=== PATIENT | female | born 1955 | race Caucasian/White ===

== ENCOUNTER → 2019-10-10 | Outpatient (CLI) | payer MEDICAID, SELFPAY | PROVIDERS: Family Provider Nurse Practitioner; Visit Provider Nurse Practitioner | DX: Z12.31 Encounter for screening mammogram for malignant neoplasm of breast (principal) | CPT/HCPCS: 77067 ==

== ENCOUNTER → 2019-10-25 11:41 | Outpatient (BNVA) | payer MEDICAID, SELFPAY | PROVIDERS: Family Provider Nurse Practitioner; PCP Nurse Practitioner; Visit Provider Social Worker Clinical | DX: F33.2 Major depressive disorder, recurrent severe without psychotic features (principal) | CPT/HCPCS: 90834 ==

== ENCOUNTER → 2019-10-30 10:01 | Outpatient (BNVA) | payer MEDICAID, SELFPAY | PROVIDERS: Family Provider Nurse Practitioner; PCP Nurse Practitioner; Visit Provider Nurse Practitioner Psychiatric/Mental Health | DX: F31.32 Bipolar disorder, current episode depressed, moderate (principal); G89.29 Other chronic pain | CPT/HCPCS: 99213 ==

== ENCOUNTER → 2019-12-04 14:30 | Outpatient (BNVA) | payer MEDICAID, SELFPAY | PROVIDERS: Family Provider Nurse Practitioner; PCP Nurse Practitioner; Visit Provider Nurse Practitioner | DX: E03.8 Other specified hypothyroidism (principal); M81.0 Age-related osteoporosis without current pathological fracture; J44.9 Chronic obstructive pulmonary disease, unspecified | CPT/HCPCS: 80053; 84439; 84443; 84481; 85025 ==

== ENCOUNTER → 2019-12-05 11:58 | Outpatient (BNVA) | payer MEDICAID, SELFPAY | PROVIDERS: Family Provider Nurse Practitioner; PCP Nurse Practitioner; Visit Provider Nurse Practitioner | DX: E03.8 Other specified hypothyroidism (principal) | CPT/HCPCS: 81003 ==

== ENCOUNTER → 2019-12-11 09:49 | Outpatient (BNVA) | payer MEDICAID, SELFPAY | PROVIDERS: Family Provider Nurse Practitioner; PCP Nurse Practitioner; Visit Provider Nurse Practitioner Psychiatric/Mental Health | DX: F33.9 Major depressive disorder, recurrent, unspecified (principal); E03.8 Other specified hypothyroidism; G47.33 Obstructive sleep apnea (adult) (pediatric) | CPT/HCPCS: 99213 ==

== ENCOUNTER 2019-12-12 11:00 | Outpatient (CLI) | payer MEDICAID, SELFPAY ==
--- NOTE | 2019-12-12 15:45 | XR_ITS ---
WS: [id number] DEXA (DUAL ENERGY X-RAY ABSORPTIOMETRY) Bone mineral density was performed using a [employer] machine. HISTORY: post menopausal COMPARISON: 12/21/2017 Lumbar spine BMD (L1-L4): 0.972 g/cm2 T score: -1.7 Z score: -0.9 Total hip BMD: Left: 0.903 g/cm2. T score: -0.8 Z score: -0.2 Right: 0.917 g/cm2. T score: -0.7 Z score: 0.0 10 year probability of a major osteoporotic fracture is 8%. Compared to the prior study from 12/21/2017. Lumbar spine bone mineral density has decreased by 4.7%. Bilateral hips bone mineral density has decreased by 0.9%. XR/XR DEXA axial skeleton* [id number] IMPRESSION: OSTEOPENIA based upon the WHO classification for females. Significant decrease in bone mineral density within the lumbar spine since the prior study. No significant change involving the hips.
== END 2019-12-12 11:01 | disposition home or self-care (01) ==
PROVIDERS: Family Provider Nurse Practitioner; PCP Nurse Practitioner; Visit Provider Nurse Practitioner
DX: M81.0 Age-related osteoporosis without current pathological fracture (principal)
CPT/HCPCS: 77080

== ENCOUNTER 2019-12-25 08:04 | Outpatient (CLI) | payer MEDICAID, SELFPAY ==
--- NOTE | 2019-12-25 08:45 | US_ITS ---
WS: [id number] THYROID ULTRASOUND REASON FOR EXAM: enlarged thyroid TECHNIQUE: Grayscale and Doppler ultrasound examination of the thyroid gland. FINDINGS: RIGHT: Right thyroid gland measures 4.4 cm x 1.0 cm x 1.2 cm. Right thyroid volume equals 2.8 ccm3. A adenoma measures 0.33 x 0.23 x 0.32 cm in the upper right lobe. LEFT: Left thyroid gland appears to be surgically absent. Thyroid isthmus: 0.2 mm. US/US thyroid [id number] IMPRESSION: Benign adenoma right lobe of the thyroid. Surgical absence of the left lobe. The right lobe is within normal limits.
== END 2019-12-25 08:05 | disposition home or self-care (01) ==
PROVIDERS: Family Provider Nurse Practitioner; PCP Nurse Practitioner; Visit Provider Nurse Practitioner
DX: F33.9 Major depressive disorder, recurrent, unspecified; E04.9 Nontoxic goiter, unspecified; D34 Benign neoplasm of thyroid gland; E89.0 Postprocedural hypothyroidism
CPT/HCPCS: 90834; 76536

== ENCOUNTER → 2020-01-22 13:53 | Outpatient (BNVA) | payer MEDICAID, SELFPAY | PROVIDERS: Family Provider Nurse Practitioner; PCP Nurse Practitioner; Visit Provider Social Worker Clinical | DX: F33.9 Major depressive disorder, recurrent, unspecified (principal) | CPT/HCPCS: 90834 ==

== ENCOUNTER → 2020-01-29 10:42 | Outpatient (BNVA) | payer MEDICAID, SELFPAY | PROVIDERS: Family Provider Nurse Practitioner; PCP Nurse Practitioner; Visit Provider Specialist | DX: R41.9 Unspecified symptoms and signs involving cognitive functions and awareness (principal) | CPT/HCPCS: 96116; 99213 ==

== ENCOUNTER → 2020-02-05 08:16 | Outpatient (BNVA) | payer MEDICAID, SELFPAY | PROVIDERS: Family Provider Nurse Practitioner; PCP Nurse Practitioner; Visit Provider Social Worker Clinical | DX: F33.9 Major depressive disorder, recurrent, unspecified (principal) | CPT/HCPCS: 90832 ==

== ENCOUNTER → 2020-02-06 13:57 | Outpatient (BNVA) | payer MEDICAID, SELFPAY | PROVIDERS: Family Provider Nurse Practitioner; PCP Nurse Practitioner; Visit Provider Nurse Practitioner | DX: M25.569 Pain in unspecified knee (principal) | CPT/HCPCS: 73562 ==

== ENCOUNTER → 2020-02-12 07:48 | Outpatient (BNVA) | payer MEDICAID, SELFPAY | PROVIDERS: Family Provider Nurse Practitioner; PCP Nurse Practitioner; Visit Provider Nurse Practitioner Psychiatric/Mental Health | DX: F33.9 Major depressive disorder, recurrent, unspecified (principal); F33.2 Major depressive disorder, recurrent severe without psychotic features | CPT/HCPCS: 99212 ==

== ENCOUNTER → 2020-02-19 08:17 | Outpatient (BNVA) | payer MEDICAID, SELFPAY | PROVIDERS: Family Provider Nurse Practitioner; PCP Nurse Practitioner; Visit Provider Social Worker Clinical | DX: F33.9 Major depressive disorder, recurrent, unspecified (principal) | CPT/HCPCS: 90834 ==

== ENCOUNTER → 2020-03-07 08:28 | Outpatient (BNVA) | payer MEDICAID, SELFPAY | PROVIDERS: Family Provider Nurse Practitioner; PCP Nurse Practitioner; Visit Provider Social Worker Clinical | DX: F33.9 Major depressive disorder, recurrent, unspecified (principal) | CPT/HCPCS: 90832 ==

== ENCOUNTER 2020-03-29 13:45 | Emergency (ER) | payer MEDICAID, SELFPAY ==
[2020-03-29 14:06] VITALS: BP 107/58; PULSE 65; RESP 14; TEMP 36.3; O2SAT 94; BMI 33.3
--- NOTE | 2020-03-29 14:43 | W.ED.SKABFB ---
HPI - Skin/Abscess/Foreign Bdy General: Chief complaint: Skin/Abscess/Foreign Body Stated complaint: knot behind ear Time Seen by Provider: 03/29/20 14:40 Source: patient Mode of arrival: ambulatory Limitations: no limitations History of Present Illness: HPI narrative: Patient comes in with swelling and tenderness behind the left ear. Patient reports starting this morning. Patient has chronic problems with the left tympanic membrane. Patient also reports chronic problems with earwax buildup in the canal. Patient appears well. Patient appears in mild discomfort. Review of Systems General: Reports: 10 or more systems reviewed and unremarkable except in HPI and below ENMT: Reports: ear or mastoid pain PFSH ED PFSH: Medical History (Updated 03/29/20 @ 14:51 by GANESH Conte) Adult onset hypothyroidism Herpes simplex History of cancer tonsil Insomnia, persistent Lumbosacral spondylosis with radiculopathy Major depressive disorder, recurrent episode She has chronic co-morbidities, including but not limited to pain and sleep apnea, which contribute to fatigue and mood dysphoria. No thoughts of harming herself or others. See subjective information below. Metabolic syndrome Mixed hyperlipidemia Obstructive sleep apnea Obstructive sleep apnea She wears her CPAP machine usually 2 or 3 nights a week, and does not wear it on the remaining nights. She is aware of the risks of not wearing the CPAP supplement. Her energy level is low, a chronic symptom. Osteoporosis, post-menopausal Seasonal allergic rhinitis due to pollen Spondylolisthesis, cervical region FLIP (stress urinary incontinence, female) Vitamin D deficiency Surgical History History of colonoscopy with polypectomy Family History Father Hypertension Mother Hypertension Cancer Sister Hypertension Diabetes Social History Smoking and tobacco status: never smoked Quit status (tobacco): has quit using tobacco Year quit tobacco: 2013 Second hand smoke exposure: No Smoking risk assessment/counseling performed?: No Alcohol intake: never Desire information about alcohol rehabilitation?: No Counseling given: No Desire information about substance/drug rehabilitation?: No Counseling given: No Lives independently: Yes Household members: spouse Housing: House Marital status: Number of children: 2 Current occupational status: unemployed History of recent travel: No Current gender identity: Female Female Reproductive History: Para: 2 Physical Exam Const: COMMON NORMALS: no acute distress and patient oriented x3 GENERAL APPEARANCE: cooperative HENMT: COMMON NORMALS: normocephalic and Normal external nose present HEAD & SCALP: normal to inspection and normocephalic NOSE: Normal external nose present TYMPANIC MEMBRANE: other (Perforation of the TM is noted to the left ear. Cerumen is noted in the left ear canal. Tenderness is noted to the left mastoid. No obvious redness or swelling is noted to the area of tenderness.) MOUTH: Normal oral and palatal mucosa present THROAT: posterior oropharynx normal Eye: GENERAL EYE: appearance normal, both eyes and all related structures Neck/C-Spine: COMMON NORMALS: full ROM Lymph: LYMPHATIC: no lymphadenopathy noted Chest: COMMONS NORMALS: normal inspection of the chest Resp: COMMON NORMALS: normal respiratory effort EFFORT & INSPECTION: Yes able to speak in complete sentences Cardio: COMMON NORMALS: regular rate and regular rhythm RATE: regular rate RHYTHM: regular rhythm GI: COMMON NORMALS: non-tender : COMMON NORMALS: Yes no CVA tenderness BLADDER/KIDNEY EXAM: Yes no CVA tenderness Back/Pelvis: COMMON NORMALS: no CVA tenderness and thoracic and lumbar spine normal to inspection Extremity: COMMON NORMALS: normal to inspection Neuro: COMMON NORMALS: patient oriented x3 and moves all extremities Psych: COMMON NORMALS: mental status grossly normal and cooperative Skin: COMMON NORMALS: no rashes or lesions noted GENERAL SKIN EXAM: no rashes or lesions noted Course Vital Signs: Vital signs: Vital Signs Temperature 97.3 F L 03/29/20 14:06 Pulse Rate 61 03/29/20 14:44 Respiratory Rate 16 03/29/20 14:44 Blood Pressure 113/72 03/29/20 14:44 Pulse Oximetry 95 03/29/20 14:44 MDM - Skin/Abscess/Foreign Bdy MDM Narrative: Medical decision making narrative: Patient comes in for concern of swelling and tenderness behind the left ear. Patient appears well. Patient appears in no acute distress. Physical exam notes tenderness to the left mastoid with a perforation to the left tympanic membrane. No obvious redness is noted to the ear canal but there is significant wax and whitish exudate. Differential diagnosis includes cerumen impaction, otitis externa, chronic otitis media. Reviewed exam with patient recommended treatment with antibiotic and follow-up with ear nose and throat. Patient reported understanding and agreed to plan. Discharge Plan Discharge Patient Disposition: Home, Self-Care Clinical Impression: Acute otitis media, left Condition: Stable Prescriptions: New Augmentin 875-125 mg tablet 1 tab PO BID Qty: 14 RF: 0 No Action baclofen 10 mg tablet 10 mg PO TID RF: 0 tacrolimus 0.1 % ointment 1 applic TOPICAL BID PRNRF: 0 budesonide [Pulmicort] 0.5 mg/2 mL suspension for nebulization 0.5 mg INHALATION BID PRNRF: 0 hydroxyzine HCl 25 mg tablet 25 mg PO BID RF: 0 donepezil [Aricept] 5 mg tablet 5 mg PO QAM RF: 0 trazodone 50 mg tablet 50 mg PO .QHS PRNRF: 0 cetirizine [Zyrtec] 10 mg tablet 10 mg PO DAILY Qty: 30 RF: 5 cholecalciferol (vitamin D3) 1,250 mcg (50,000 unit) capsule 50,000 unit PO .COMPLEX Qty: 2 RF: 5 estradiol 0.01 % (0.1 mg/gram) cream 1 gm VAGINAL .2 times a week Qty: 42.5 RF: 2 guaifenesin [Mucinex] 600 mg tablet extended release 12hr 600 mg PO BID PRN (Reason: congestion) Qty: 60 RF: 5 levothyroxine 200 mcg tablet 200 mcg PO DAILY Qty: 30 RF: 5 rosuvastatin [Crestor] 40 mg tablet 40 mg PO .QHS Qty: 30 RF: 5 aripiprazole [Abilify] 5 mg tablet 5 mg PO DAILY Qty: 30 RF: 2 fluoxetine [Prozac] 40 mg capsule 40 mg PO DAILY Qty: 30 RF: 2 prenat.vits,bull,lrb-lcuz-okjzv Tablet 1 tab PO DAILY 30 Days Qty: 30 RF: 5 ibandronate [Boniva] 150 mg tablet 150 mg PO .monthly Qty: 1 RF: 5 albuterol sulfate 2.5 mg /3 mL (0.083 %) solution for nebulization 2.5 mg INHALATION Q6H Qty: 75 RF: 5 meloxicam [Mobic] 15 mg tablet 15 mg PO DAILY PRN (Reason: joint pain) Qty: 30 RF: 2 famciclovir 500 mg tablet 500 mg PO BID Qty: 60 RF: 2 albuterol sulfate [Ventolin HFA] 90 mcg/actuation HFA aerosol inhaler 2 puff INHALATION QID PRN (Reason: shortness of breath or wheezing) Qty: 8.5 RF: 2 Discharge Orders: Discharge Order (Routine); Ordered 03/29/20 Ordered By: Chad Trinidad Referrals: Sharlene Thomason, LOGISTICIAN-C [Primary Care Provider] - Discharge Diet: Usual diet Discharge Activity: Increase activity as tolerated Activity Restrictions/Additional Instructions: Drink plenty of water with medication. Activity as tolerated. Follow-up with research animal facility supervisor for continued complaint. Return to the ER for high fever or worsening symptoms. Coding Level of Care Code ED Child Psychology Teacher for Jacquelin Fwanna Exam Comprehensive
[2020-03-29 14:44] VITALS: BP 113/72; PULSE 61; RESP 16; O2SAT 95
[2020-03-29 15:01] VITALS: BP 108/75; PULSE 64; RESP 17; O2SAT 95
== END 2020-03-29 15:02 | disposition home or self-care (01) ==
LOC: ER 15:16
PROVIDERS: Emergency Provider Nurse Practitioner Family; PCP Nurse Practitioner
DX: H66.92 Otitis media, unspecified, left ear (principal); Z87.891 Personal history of nicotine dependence; E78.2 Mixed hyperlipidemia
CPT/HCPCS: 12345; 99282; 99283

== ENCOUNTER → 2020-04-01 12:12 | Outpatient (BNVA) | payer MEDICAID, SELFPAY | PROVIDERS: PCP Nurse Practitioner; Visit Provider Nurse Practitioner | DX: R59.9 Enlarged lymph nodes, unspecified (principal); Z85.818 Personal history of malignant neoplasm of other sites of lip, oral cavity, and pharynx | CPT/HCPCS: 80053; 85025 ==

== ENCOUNTER → 2020-04-08 07:55 | Outpatient (BNVA) | payer MEDICAID, SELFPAY | PROVIDERS: PCP Nurse Practitioner; Visit Provider Social Worker Clinical | DX: F33.9 Major depressive disorder, recurrent, unspecified (principal) | CPT/HCPCS: 90832 ==

== ENCOUNTER 2020-04-11 08:01 | Outpatient (CLI) | payer MEDICAID, SELFPAY ==
--- NOTE | 2020-04-11 08:00 | CT_ITS ---
WS: [id number] CT NECK WITH CONTRAST HISTORY: History tonsil CA and left lymph node TECHNIQUE: Contiguous 5 mm axial images are performed through the neck with intravenous contrast. Sag ittal and coronal reformats are also submitted. All CT scans at [facility] use at least o ne of these dose optimization techniques: automated exposure control; mA and/or kV adjustment per pat ient size (includes targeted exams where dose is matched to clinical indication); or iterative recons truction. CONTRAST: CONTRAST: Omnipaque 300; 95 mL IV. DLP: 2475.58 mGycm COMPARISON: 08/17/2019 and 05/24/2018 Nasopharynx, oropharynx, hypopharynx and larynx are unremarkable. No soft tissue masses or abnormal e nhancement. Torus tubarius and fossa of Rosenmuller and parapharyngeal fat are normal. There is a slightly enlarging lymph node at level 1b on the RIGHT. Maximum diameter of 8 mm. Very sli ghtly increased in size since 08/17/2019. Otherwise no adenopathy identified. In the region of the pal pable marker along the LEFT neck there is no mass. Sternocleidomastoid muscle and normal soft tissues at this level. LEFT thyroid has been removed. LEFT submandibular gland may have been surgically removed or small bull iber versus atrophy. Mild cervical spondylosis. Visualized portions of the skull base demonstrate no abnormalities. Orbits and globes are within norm al limits. No soft tissue masses. Visualized paranasal sinuses and mastoid air cells are normal. Chronic emphysematous changes at the apices. Mild atherosclerosis thoracic aorta. Mild intimal thickening LEFT carotid artery. CT/CT neck w con* [id number] IMPRESSION: 1. No soft tissue mass or adenopathy along the LEFT neck in the area of the pa lpable region. Normal soft tissues. 2. Slightly enlarged but still subcentimeter RIGHT level Ib lymph node. May be reactive versus early neoplastic. 3. Prior LEFT thyroidectomy and atrophy versus removal of the LEFT submandibul ar gland. 4. No recurrent mass.
[2020-04-11] MEDS: iohexol 300 mg/mL 100 mL Btl IV (08:18)
== END 2020-04-11 08:02 | disposition home or self-care (01) ==
LOC: RADWPI 08:02
PROVIDERS: PCP Nurse Practitioner; Visit Provider Nurse Practitioner
DX: R59.9 Enlarged lymph nodes, unspecified (principal); Z85.818 Personal history of malignant neoplasm of other sites of lip, oral cavity, and pharynx; R73.9 Hyperglycemia, unspecified
CPT/HCPCS: 70491; 83036; Q9967

== ENCOUNTER → 2020-05-08 08:02 | Outpatient (BNVA) | payer MEDICAID, SELFPAY | PROVIDERS: PCP Nurse Practitioner; Visit Provider Social Worker Clinical | DX: F33.9 Major depressive disorder, recurrent, unspecified (principal) | CPT/HCPCS: 90834 ==

== ENCOUNTER 2020-05-09 14:55 | Outpatient (CLI) | payer MEDICAID, SELFPAY ==
--- NOTE | 2020-05-09 15:15 | MR_ITS ---
WS: [id number] MRI HEAD WITHOUT CONTRAST TECHNIQUE: Sagittal T1, T2 axial, T2 axial FLAIR, axial and coronal T1 images, axial susceptibility w eighted imaging, axial diffusion weighted images, and coronal T2 images were obtained. CLINICAL INFORMATION: Z85.818 Personal history of malignant neoplasm of other s... COMPARISON: MRI 5 15,015 FINDINGS: No evidence of restricted diffusion to suggest acute ischemia. Ventricular system and basal cisterns are patent. Mild supratentorial white matter changes consistent with small vessel disease in a patien t this age. This is slightly progressed since 2014. No significant parenchymal volume loss. Normal posterior fossa. Normal vascular flow voids at the skull base. No extra-axial fluid collection s. No evidence of mass or mass effect. Paranasal sinuses are well aerated. Mild mucosal thickening in the mastoid air cells bilaterally. No hemosiderin on the susceptibility weighted images. Normal opti c chiasm and pituitary infundibulum. Temporal lobes and hippocampal formations are normal in appearan ce. No atrophy. Cavernous sinuses and Meckel's cave are normal in appearance. MR/MR head wo con* [id number] IMPRESSION: 1. No evidence of restricted diffusion to suggest acute ischemia. 2. Mild small vessel changes slightly progressed since 2014 3. No significant parenchymal volume loss. 4. Temporal lobes and hippocampal formations are normal in appearance. No atro phy. 5. Mild mucosal thickening in the mastoid air cells bilaterally. Paranasal sin uses are well aerated 6. No other significant findings.
== END 2020-05-09 14:56 | disposition home or self-care (01) ==
LOC: RADSHAW 14:59
PROVIDERS: PCP Nurse Practitioner; Visit Provider Nurse Practitioner
DX: Z85.818 Personal history of malignant neoplasm of other sites of lip, oral cavity, and pharynx (principal); R51 Headache
CPT/HCPCS: 70551

== ENCOUNTER → 2020-05-16 09:28 | Outpatient (BNVA) | payer MEDICAID, SELFPAY | PROVIDERS: PCP Nurse Practitioner; Visit Provider Nurse Practitioner Psychiatric/Mental Health | DX: F33.9 Major depressive disorder, recurrent, unspecified (principal); G47.33 Obstructive sleep apnea (adult) (pediatric) | CPT/HCPCS: 99212 ==

== ENCOUNTER → 2020-06-04 09:31 | Outpatient (BNVA) | payer MEDICAID, SELFPAY | PROVIDERS: PCP Nurse Practitioner; Visit Provider Nurse Practitioner | DX: N39.46 Mixed incontinence (principal); E78.2 Mixed hyperlipidemia; E03.8 Other specified hypothyroidism; E55.9 Vitamin D deficiency, unspecified | CPT/HCPCS: 80053; 80061; 81000; 84443 ==

== ENCOUNTER → 2020-06-05 10:26 | Outpatient (BNVA) | payer MEDICAID, SELFPAY | PROVIDERS: PCP Nurse Practitioner; Visit Provider Social Worker Clinical | DX: F33.9 Major depressive disorder, recurrent, unspecified (principal) | CPT/HCPCS: 90832 ==

== ENCOUNTER → 2020-07-08 09:30 | Outpatient (BNVA) | payer MEDICAID, SELFPAY | PROVIDERS: PCP Nurse Practitioner; Visit Provider Social Worker Clinical | DX: F33.9 Major depressive disorder, recurrent, unspecified (principal) | CPT/HCPCS: 90834 ==

== ENCOUNTER → 2020-08-05 08:40 | Outpatient (BNVA) | payer MEDICAID, SELFPAY | PROVIDERS: PCP Nurse Practitioner; Visit Provider Social Worker Clinical | DX: F33.1 Major depressive disorder, recurrent, moderate (principal) | CPT/HCPCS: 90791 ==

== ENCOUNTER → 2020-08-08 09:33 | Outpatient (BNVA) | payer MEDICAID, SELFPAY | PROVIDERS: PCP Nurse Practitioner; Visit Provider Nurse Practitioner Psychiatric/Mental Health | DX: F33.9 Major depressive disorder, recurrent, unspecified (principal); E78.00 Pure hypercholesterolemia, unspecified | CPT/HCPCS: 99212 ==

== ENCOUNTER → 2020-08-26 08:19 | Outpatient (BNVA) | payer MEDICAID, SELFPAY | PROVIDERS: PCP Nurse Practitioner; Visit Provider Social Worker Clinical | DX: F33.0 Major depressive disorder, recurrent, mild (principal) | CPT/HCPCS: 90832 ==

== ENCOUNTER → 2020-09-02 10:19 | Outpatient (BNVA) | payer MEDICAID, SELFPAY | PROVIDERS: PCP Nurse Practitioner; Visit Provider Nurse Practitioner Family | DX: Z20.828 Contact with and (suspected) exposure to other viral communicable diseases (principal); R50.9 Fever, unspecified; R19.7 Diarrhea, unspecified | CPT/HCPCS: 85025; 87635 ==

== ENCOUNTER → 2020-09-24 08:28 | Outpatient (BNVA) | payer MEDICAID, SELFPAY | PROVIDERS: PCP Nurse Practitioner; Visit Provider Social Worker Clinical | DX: F33.9 Major depressive disorder, recurrent, unspecified (principal) | CPT/HCPCS: 90832 ==

== ENCOUNTER → 2020-09-26 08:55 | Outpatient (BNVA) | payer MEDICAID, SELFPAY | PROVIDERS: PCP Nurse Practitioner; Visit Provider Nurse Practitioner Psychiatric/Mental Health | DX: F33.9 Major depressive disorder, recurrent, unspecified (principal) | CPT/HCPCS: 99212 ==

== ENCOUNTER → 2020-10-24 08:30 | Outpatient (BNVA) | payer MEDICAID, SELFPAY | PROVIDERS: PCP Nurse Practitioner; Visit Provider Social Worker Clinical | DX: F33.9 Major depressive disorder, recurrent, unspecified (principal) | CPT/HCPCS: 90832 ==

== ENCOUNTER → 2020-11-07 08:31 | Outpatient (BNVA) | payer MEDICAID, SELFPAY | PROVIDERS: PCP Nurse Practitioner; Visit Provider Social Worker Clinical | DX: F33.9 Major depressive disorder, recurrent, unspecified (principal) | CPT/HCPCS: 90832 ==

== ENCOUNTER → 2020-11-26 07:28 | Outpatient (BNVA) | payer MEDICAID, SELFPAY | PROVIDERS: PCP Nurse Practitioner; Visit Provider Social Worker Clinical | DX: F33.9 Major depressive disorder, recurrent, unspecified (principal) | CPT/HCPCS: 90834; 90832 ==

== ENCOUNTER → 2020-12-19 08:22 | Outpatient (BNVA) | payer MEDICAID, SELFPAY | PROVIDERS: PCP Nurse Practitioner; Visit Provider Nurse Practitioner Psychiatric/Mental Health | DX: F32.4 Major depressive disorder, single episode, in partial remission (principal) | CPT/HCPCS: 99213 ==

== ENCOUNTER → 2020-12-24 09:19 | Outpatient (BNVA) | payer MEDICAID, SELFPAY | PROVIDERS: PCP Nurse Practitioner; Visit Provider Nurse Practitioner | DX: Z12.39 Encounter for other screening for malignant neoplasm of breast (principal); E55.9 Vitamin D deficiency, unspecified; E03.8 Other specified hypothyroidism; E78.2 Mixed hyperlipidemia; E78.00 Pure hypercholesterolemia, unspecified | CPT/HCPCS: 80053; 80061; 82306; 84443 ==

== ENCOUNTER 2020-12-26 08:32 | Outpatient (CLI) | payer MEDICAID, SELFPAY ==
--- NOTE | 2020-12-26 08:48 | CT_ITS ---
WS: [id number] CT scan of the neck. Additional two-dimensional coronal and sagittal reconstruction was performed. Clinical Data: MALIGNANT NEOPLASM OF TONSIL, PAIN IN THROAT Comparison: CT neck, 04/11/2020 DLP: 2582.[address] scans at [facility] use at least one of these dose optimization techniques: automat ed exposure control; mA and/or kV adjustment per patient size (includes targeted exams where dose is matched to clinical indication); or iterative reconstruction. Findings: No lymphadenopathy is noted. The small lymph node posterior to the right internal jugular vein seen o n axial image 27 of 54 is slightly smaller. A small lymph node on the right side of the mandible seen best on axial image 24 of 54 is smaller. The salivary glands are unremarkable. There is no preverteb ral soft tissue swelling. The larynx is symmetric. The thyroid gland shows enhancement of the right l obe and absence of the left lobe The floor of the mouth and parapharyngeal spaces are normal. The ora l cavity is unremarkable. No tonsillar enlargement is seen. The carotid arteries bifurcate normally. The cervical spine shows mild osteoarthritis at C5-C7. The l mili apices show no acute abnormalities. The portions of the intracranial circulation which are seen d emonstrate no abnormalities. No erosion of the skull or skull base is seen. There is cloudiness of th e left mastoid air cells consistent with chronic mastoiditis. CT/CT neck w con* [id number] Impression: 1. Negative for abnormal soft tissue masses. 2. Reduction in size of probable reactive nodes on right side neck.
[2020-12-26] MEDS: iohexol 300 mg/mL 100 mL Btl IV (09:10)
== END 2020-12-26 08:33 | disposition home or self-care (01) ==
LOC: RADWPI 08:33
PROVIDERS: PCP Nurse Practitioner; Visit Provider Specialist
DX: C09.9 Malignant neoplasm of tonsil, unspecified (principal); R07.0 Pain in throat
CPT/HCPCS: 70491; Q9967

== ENCOUNTER → 2020-12-27 10:34 | Outpatient (BNVA) | payer MEDICAID, SELFPAY | PROVIDERS: PCP Nurse Practitioner; Visit Provider Nurse Practitioner | DX: E03.8 Other specified hypothyroidism (principal) | CPT/HCPCS: 81003 ==

== ENCOUNTER → 2021-01-06 11:46 | Outpatient (BNVA) | payer MEDICAID, SELFPAY | PROVIDERS: PCP Nurse Practitioner; Visit Provider Social Worker Clinical | DX: F33.9 Major depressive disorder, recurrent, unspecified (principal) | CPT/HCPCS: 90834 ==

== ENCOUNTER → 2021-01-31 08:54 | Outpatient (BNVA) | payer MEDICAID, SELFPAY | PROVIDERS: PCP Nurse Practitioner; Visit Provider Social Worker Clinical | DX: F33.9 Major depressive disorder, recurrent, unspecified (principal) | CPT/HCPCS: 90832 ==

== ENCOUNTER → 2021-03-03 12:49 | Outpatient (BNVA) | payer MEDICAID, SELFPAY | PROVIDERS: PCP Nurse Practitioner; Visit Provider Social Worker Clinical | DX: F33.9 Major depressive disorder, recurrent, unspecified (principal) | CPT/HCPCS: 90834 ==

== ENCOUNTER → 2021-03-13 14:33 | Outpatient (BNVA) | payer MEDICAID, SELFPAY | PROVIDERS: PCP Nurse Practitioner; Visit Provider Nurse Practitioner | DX: E03.8 Other specified hypothyroidism (principal); J30.1 Allergic rhinitis due to pollen; E55.9 Vitamin D deficiency, unspecified; B00.9 Herpesviral infection, unspecified; M47.27 Other spondylosis with radiculopathy, lumbosacral region; N39.46 Mixed incontinence; E78.2 Mixed hyperlipidemia; J44.9 Chronic obstructive pulmonary disease, unspecified | CPT/HCPCS: 82306; 84443; 85025 ==

== ENCOUNTER 2021-03-21 09:54 | Outpatient (CLI) | payer MEDICAID, SELFPAY ==
--- NOTE | 2021-03-21 10:00 | MM_ITS ---
WS: [id number] Bilateral screening digital mammogram, 03/21/2021 Clinical Data: Z12.39 - Encounter for other screening for malignant neoplasm of breast Comparison: 10/10/2019, 08/23/2018, 08/03/2017, 07/09/2016, 06/24/2015, 03/30/2014, 05/24/2012, 04/22/2009 , 04/10/2008, 03/29/2007, 03/26/2006. Findings: The breast parenchymal pattern shows fat replacement. No spiculated masses or clustered calcification s are seen. There are no secondary signs of carcinoma. MM/[place] [id number] Impression: 1. Negative bilateral mammogram unchanged. 2. Recommend annual screening mammograms. BIRADS: 1-Negative FOLLOW UP: 1 Year Follow-up The CAD material checker was used.
== END 2021-03-21 09:55 | disposition home or self-care (01) ==
LOC: RADSHAW 09:56
PROVIDERS: PCP Nurse Practitioner; Visit Provider Nurse Practitioner
DX: Z12.31 Encounter for screening mammogram for malignant neoplasm of breast (principal)
CPT/HCPCS: 77067

== ENCOUNTER → 2021-03-25 10:18 | Outpatient (BNVA) | payer MEDICAID, SELFPAY | PROVIDERS: PCP Nurse Practitioner; Visit Provider Nurse Practitioner | DX: R19.7 Diarrhea, unspecified (principal) | CPT/HCPCS: 82270 ==

== ENCOUNTER → 2021-04-01 07:59 | Outpatient (BNVA) | payer MEDICAID, SELFPAY | PROVIDERS: PCP Nurse Practitioner; Visit Provider Social Worker Clinical | DX: F33.9 Major depressive disorder, recurrent, unspecified (principal) | CPT/HCPCS: 90834 ==

== ENCOUNTER → 2021-04-22 07:29 | Outpatient (BNVA) | payer MEDICAID, SELFPAY | PROVIDERS: PCP Nurse Practitioner; Visit Provider Nurse Practitioner Psychiatric/Mental Health | DX: F32.4 Major depressive disorder, single episode, in partial remission (principal) | CPT/HCPCS: 99213 ==

== ENCOUNTER → 2021-05-01 12:42 | Outpatient (BNVA) | payer MEDICAID, SELFPAY | PROVIDERS: PCP Nurse Practitioner; Visit Provider Social Worker Clinical | DX: F33.9 Major depressive disorder, recurrent, unspecified (principal) | CPT/HCPCS: 90834 ==

== ENCOUNTER 2021-05-21 11:07 | Emergency (ER) | payer MEDICAID, SELFPAY ==
[2021-05-21 11:45] VITALS: BP 119/62; PULSE 62; RESP 16; TEMP 36.7; O2SAT 93; BMI 34.2
--- NOTE | 2021-05-21 11:57 | CT_ITS ---
WS: [id number] CT CERVICAL TRAUMA TECHNIQUE: Noncontrast CT of the cervical spine with coronal and sagittal reformatted images. CLINICAL INFORMATION: fall COMPARISON: None. DLP: 685.[address] scans at [facility] use at least one of these dose optimization techniques: automat ed exposure control; mA and/or kV adjustment per patient size (includes targeted exams where dose is matched to clinical indication); or iterative reconstruction. FINDINGS: Straightening of the normal cervical lordosis. Mild spondylitic changes. Normal craniocervical juncti on. Normal C1-C2 articulation. Dens is normal in appearance. Normal occipital condyles. No high-grade spinal canal narrowing. Normal C1 ring. No evidence of acute fracture or dislocation. Normal prevertebral soft tissues. Mastoids air cells are well aerated. CT/CT cervical spin wo con* [id number] IMPRESSION: No acute cervical spine fractures
--- NOTE | 2021-05-21 11:57 | CT_ITS ---
WS: [id number] CT HEAD TECHNIQUE: Noncontrast CT of the head obtained from the skullbase to the vertex. CLINICAL INFORMATION: fall COMPARISON: None. DLP: 913.[address] scans at [facility] use at least one of these dose optimization techniques: automat ed exposure control; mA and/or kV adjustment per patient size (includes targeted exams where dose is matched to clinical indication); or iterative reconstruction. FINDINGS: No evidence of intracranial hemorrhage or mass effect. Ventricular system and basal cisterns are ruiz nt. Mild small vessel changes with mild parenchymal volume loss. No extra-axial fluid collections. No evidence of mass or mass effect. Normal walton-white differentiation. Paranasal sinuses and mastoid air cells are well aerated. Scalp edema overlying the parietal occipita l calvarium. CT/CT head wo con* [id number] IMPRESSION: 1. No evidence of intracranial hemorrhage or mass effect. 2. Mild small vessel changes. Mild parenchymal volume loss. 3. Scalp edema overlying the parietal occipital calvarium. 4. No acute intracranial findings.
--- NOTE | 2021-05-21 11:58 | ED_ITS ---
HPI - Fall General: Chief Complaint: Fall Stated Complaint: Fall, hit back of head and neck Time Seen by Provider: 05/21/21 11:51 History of Present Illness: HPI Narrative: Patient says she tripped curb today fell backwards striking her neck and head and has a goose egg on her head denies loss of consciousness has some soreness neck and head MD complaint: fall Onset (ago): minute(s) Fall from: standing Fall witnessed: no Place fall occurred: home Loss of consciousness: None Symptoms prior to fall: none Context: tripped/slipped Associated symptoms-after fall: Reports no associated symptoms and neck pain (C- collar placed in triage); Denies abdominal pain, chest pain or headache(s) Review of Systems Const: Denies: fever(s), chills or body aches Eyes: Denies: change in vision or blurry vision ENMT: Denies: throat pain or nasal congestion Card: Denies: chest pain or dyspnea on exertion Resp: Denies: dyspnea, productive cough or non-productive cough GI: Denies: abdominal pain, nausea or vomiting Musc: Reports: neck pain (C-collar placed in triage); Denies: extremity pain Skin/Breast: Reports: other (As swelling back of the head/scalp); Denies: rash Neuro: Denies: headache(s) Psych: Denies: anxiety or depression Kevin/Lymph: Denies: easy bruising PFSH ED PFSH: Medical History Adult onset hypothyroidism Herpes simplex Insomnia, persistent Lumbosacral spondylosis with radiculopathy Major depressive disorder in partial remission Major depressive disorder, recurrent episode Metabolic syndrome Mixed hyperlipidemia Mixed incontinence urge and stress Obstructive sleep apnea Obstructive sleep apnea Osteoporosis, post-menopausal Seasonal allergic rhinitis due to pollen Spondylolisthesis, cervical region FLIP (stress urinary incontinence, female) Vitamin D deficiency Surgical History History of cancer tonsil History of colonoscopy with polypectomy History of thyroid surgery Family History Father Hypertension Mother Hypertension Cancer Sister Hypertension Diabetes Social History Quit status (tobacco): has quit using tobacco Year quit tobacco: 2012 Second hand smoke exposure: No Smoking risk assessment/counseling performed?: No Alcohol intake: never Desire information about alcohol rehabilitation?: No Counseling given: No Desire information about substance/drug rehabilitation?: No Counseling given: No Adopted: No Caregiver/support person: No Lives independently: Yes Household members: spouse Housing: House Marital status: Number of children: 2 service: No Current occupational status: unemployed History of recent travel: No Current gender identity: Female Female Reproductive History: Para: 2 Physical Exam Const: COMMON NORMALS: no acute distress, average body habitus and patient oriented x3 HENMT: COMMON NORMALS: normocephalic HEAD & SCALP: normal to inspection and normocephalic FACE & SINUS: normal facial exam Eye: COMMON NORMALS: conjunctivae normal GENERAL EYE: appearance normal, both eyes and all related structures CONJUNCTIVA: Yes conjunctivae normal Neck/C-Spine: COMMON NORMALS: full ROM and no JVD OTHER: Mild tenderness paracervical areas Chest: COMMONS NORMALS: normal inspection of the chest Resp: COMMON NORMALS: normal respiratory effort and clear to auscultation bilaterally AUSCULTATION: clear to auscultation bilaterally Cardio: COMMON NORMALS: no JVD, regular rate and regular rhythm RATE: regular rate RHYTHM: regular rhythm GI: COMMON NORMALS: Normal to inspection, nondistended, normoactive bowel sounds present Extremity: COMMON NORMALS: normal to inspection and full ROM Neuro: COMMON NORMALS: patient oriented x3 Skin: OTHER: Has hematoma occiput Course Vital Signs: Vital signs: Vital Signs Temperature 98.1 F 05/21/21 11:45 Pulse Rate 62 05/21/21 11:45 Respiratory Rate 16 05/21/21 11:45 Blood Pressure 119/62 05/21/21 11:45 Pulse Oximetry 93 05/21/21 11:45 Discharge Plan Discharge Prescriptions: No Action hydrocodone-acetaminophen 10-325 mg tablet 1 tab PO Q6H PRNRF: 0 baclofen 10 mg tablet 10 mg PO TID RF: 0 tacrolimus 0.1 % ointment 1 applic TOPICAL BID PRNRF: 0 budesonide [Pulmicort] 0.5 mg/2 mL suspension for nebulization 0.5 mg INHALATION BID PRNRF: 0 ibandronate [Boniva] 150 mg tablet 150 mg PO .monthly Qty: 1 RF: 5 fluoxetine [Prozac] 40 mg capsule 40 mg PO DAILY Qty: 30 RF: 3 clindamycin HCl 150 mg capsule 150 mg PO TID 10 Days Qty: 30 RF: 0 mupirocin 2 % ointment 1 applic topical TID Qty: 22 RF: 0 albuterol sulfate [Ventolin HFA] 90 mcg/actuation HFA aerosol inhaler 2 puff INHALATION QID PRN (Reason: shortness of breath or wheezing) Qty: 8.5 RF: 2 cetirizine [Zyrtec] 10 mg tablet 10 mg PO DAILY Qty: 30 RF: 5 famciclovir 500 mg tablet 500 mg PO BID Qty: 60 RF: 2 meloxicam [Mobic] 15 mg tablet 15 mg PO DAILY PRN (Reason: joint pain) Qty: 30 RF: 5 oxybutynin chloride 5 mg tablet 5 mg PO BID Qty: 60 RF: 5 rosuvastatin [Crestor] 20 mg tablet 20 mg PO DAILY Qty: 30 RF: 5 hydroxyzine pamoate 25 mg capsule 25 mg PO TID Qty: 90 RF: 5 ergocalciferol (vitamin D2) 1,250 mcg (50,000 unit) capsule 1,250 mcg PO .weekly Qty: 4 RF: 2 levothyroxine 25 mcg tablet 25 mcg PO DAILY Qty: 30 RF: 2 levothyroxine 200 mcg tablet 200 mcg PO DAILY Qty: 30 RF: 5 albuterol sulfate 2.5 mg /3 mL (0.083 %) solution for nebulization 2.5 mg INHALATION Q6H Qty: 75 RF: 5 guaifenesin [Mucinex] 600 mg tablet extended release 12hr 600 mg PO BID PRN (Reason: congestion) Qty: 60 RF: 5 prenat.vits,bull,[id number]-gfwo-ocigf Tablet 1 tab PO DAILY 30 Days Qty: 30 RF: 5 estradiol 0.01 % (0.1 mg/gram) cream 2 g VAGINAL .2 times a week Qty: 42.5 RF: 2 Coding Level of Care Code ED Residential Treatment Staff for Chg Lillie
[2021-05-21 12:03] VITALS: BP 117/61; PULSE 67; RESP 16; O2SAT 93
[2021-05-21 14:00] VITALS: BP 126/61; PULSE 59; O2SAT 93
== END 2021-05-21 14:01 | disposition home or self-care (01) ==
PROVIDERS: Emergency Provider Nurse Practitioner Family; PCP Nurse Practitioner
DX: S00.93XA Contusion of unspecified part of head, initial encounter (principal); E78.2 Mixed hyperlipidemia; Z87.891 Personal history of nicotine dependence; W01.198A Fall on same level from slipping, tripping and stumbling with subsequent striking against other object, initial encounter
CPT/HCPCS: 70450; 72125; 99282

== ENCOUNTER → 2021-06-11 10:34 | Outpatient (BNVA) | payer MEDICAID, SELFPAY | PROVIDERS: PCP Nurse Practitioner; Visit Provider Social Worker Clinical | DX: F33.9 Major depressive disorder, recurrent, unspecified (principal) | CPT/HCPCS: 90834 ==

== ENCOUNTER → 2021-07-22 07:17 | Outpatient (BNVA) | payer MEDICAID, SELFPAY | PROVIDERS: PCP Nurse Practitioner; Visit Provider Nurse Practitioner Psychiatric/Mental Health | DX: F32.4 Major depressive disorder, single episode, in partial remission (principal); F41.9 Anxiety disorder, unspecified | CPT/HCPCS: 80053; 82306; 84443; 85025; 99214 ==

== ENCOUNTER → 2021-07-25 08:44 | Outpatient (BNVA) | payer MEDICAID, SELFPAY | PROVIDERS: PCP Nurse Practitioner; Visit Provider Nurse Practitioner | DX: R73.9 Hyperglycemia, unspecified (principal); E55.9 Vitamin D deficiency, unspecified | CPT/HCPCS: 83036 ==

== ENCOUNTER → 2021-08-19 09:54 | Outpatient (BNVA) | payer MEDICAID, SELFPAY | PROVIDERS: PCP Nurse Practitioner; Visit Provider Nurse Practitioner Psychiatric/Mental Health | DX: F32.4 Major depressive disorder, single episode, in partial remission (principal); F41.9 Anxiety disorder, unspecified | CPT/HCPCS: 99214 ==

== ENCOUNTER → 2021-10-13 09:44 | Outpatient (BNVA) | payer MEDICARE, MEDICAID, SELFPAY | PROVIDERS: PCP Nurse Practitioner; Visit Provider Nurse Practitioner Psychiatric/Mental Health | DX: F32.4 Major depressive disorder, single episode, in partial remission (principal); F41.9 Anxiety disorder, unspecified; L50.9 Urticaria, unspecified | CPT/HCPCS: 99213 ==

== ENCOUNTER 2021-10-17 12:30 | Emergency (ER) | payer MEDICARE, MEDICAID, SELFPAY ==
[2021-10-17 12:53] VITALS: BP 113/74; PULSE 70; RESP 16; TEMP 36.8; O2SAT 96; BMI 35.2
--- NOTE | 2021-10-17 13:11 | ED_ITS ---
HPI - Female Genitourinary General: Chief complaint: Urogenital-Female Stated complaint: Vaginal Discomfort Time Seen by Provider: 10/17/21 13:00 Source: patient Mode of arrival: ambulatory Limitations: no limitations History of Present Illness: HPI Narrative: 66-year-old female presents to the ER today for vaginal irritation. Patient reports she has had this going on for quite some time has been treated with multiple different things. Patient denies having had any vaginal swabs done to determine the cause. 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 She reports this is caused a lot of issues throughout her body. Patient also reports a history of herpes but denies having had any vaginal herpes in the past. Patient takes famciclovir twice daily for the herpes elsewhere. Patient denies any increased discharge. Denies any vaginal bleeding. Patient still has her uterus and cervix. Patient has had a tubal. Patient reports she scratches until she causes wounds in the vaginal area. Patient has recently been treated for a yeast infection but reports that has not improved at all. Patient also was treated at one point for a bacterial infection however again reports that did not help. MD elicited complaint: genital rash Onset (ago): week(s) Location of symptoms: external genitalia and vaginal Severity: severe Quality of pain: burning and other (Itchy) Consistency: constant Vaginal discharge: white Vaginal bleeding: none Relieving factors: none Sexual activity: Yes Patient : No Review of Systems General: Reports: 10 or more systems reviewed and unremarkable except in HPI and below PFSH ED PFSH: Medical History Adult onset hypothyroidism Herpes simplex Insomnia, persistent Lumbosacral spondylosis with radiculopathy Major depressive disorder in partial remission Major depressive disorder, recurrent episode Metabolic syndrome Mixed hyperlipidemia Mixed incontinence urge and stress Obstructive sleep apnea Osteoporosis, post-menopausal Psychiatric care Seasonal allergic rhinitis due to pollen Spondylolisthesis, cervical region FLIP (stress urinary incontinence, female) Vitamin D deficiency Surgical History History of cancer tonsil History of colonoscopy with polypectomy History of thyroid surgery Family History Father Hypertension Mother Hypertension Cancer Sister Hypertension Diabetes Social History Smoking and tobacco status: former smoker Quit status (tobacco): has quit using tobacco Year quit tobacco: 2012 Second hand smoke exposure: No Smoking risk assessment/counseling performed?: No Alcohol intake: never Desire information about alcohol rehabilitation?: No Counseling given: No Desire information about substance/drug rehabilitation?: No Counseling given: No Adopted: No Caregiver/support person: No Lives independently: Yes Household members: spouse Housing: House Marital status: Number of children: 2 service: No Current occupational status: unemployed History of recent travel: No Current gender identity: Female Female Reproductive History: Para: 2 Physical Exam Const: COMMON NORMALS: no acute distress, average body habitus and patient oriented x3 GENERAL APPEARANCE: cooperative and comfortable HENMT: COMMON NORMALS: normocephalic, external ears normal and Normal external nose present HEAD & SCALP: normocephalic NOSE: Normal external nose present EXTERNAL EAR: Yes external ears normal Eye: COMMON NORMALS: conjunctivae normal CONJUNCTIVA: Yes conjunctivae normal Neck/C-Spine: COMMON NORMALS: full ROM and no lymphadenopathy Resp: COMMON NORMALS: normal respiratory effort, No retractions and clear to auscultation bilaterally AUSCULTATION: clear to auscultation bilaterally, no rales, no rhonchi and no wheezes Cardio: COMMON NORMALS: regular rate, regular rhythm and No murmurs present (Cardio) RATE: regular rate RHYTHM: regular rhythm GI: COMMON NORMALS: Normal to inspection, nondistended, normoactive bowel sounds present, Soft to palpation and non-tender PALPATION: Yes Soft to palpation : EXTERNAL FEMALE EXAM: Yes normal appearance of the urethra SPECULUM EXAM - VAGINA: Yes vagina atrophic, Yes erythematous (Mild), Yes lesion ulcer (Multiple on the labia majora) and Yes Vaginal discharge present Vaginal discharge present: normal and white Extremity: COMMON NORMALS: normal to inspection and full ROM Neuro: COMMON NORMALS: patient oriented x3, moves all extremities, no sensory deficits noted and gait normal Psych: COMMON NORMALS: mental status grossly normal, Normal thought process present and cooperative THOUGHT PROCESS: Normal thought process present Skin: COMMON NORMALS: no rashes or lesions noted GENERAL SKIN EXAM: no rashes or lesions noted Course ED course: Patient presents to the ER today for vaginal irritation. Patient's been treated for this multiple times by her PCP with no improvement. Patient has never had any swabs done. We will do that in the ER today and treat based on physical exam and history. Most swabs will be send outs. Vital Signs: Vital signs: Vital Signs Temperature 98.3 F 10/17/21 12:53 Pulse Rate 70 10/17/21 12:53 Respiratory Rate 16 10/17/21 12:53 Blood Pressure 113/74 10/17/21 12:53 Pulse Oximetry 96 10/17/21 12:53 MDM - Female MDM Narrative: Medical decision making narrative: 66-year-old female presents to the ER today for vaginal irritation. Patient has been treated multiple times by her PCP for both yeast infections and vaginal infections however nothing is improving. Patient has never had any swabs done she reports. Patient reports some normal discharge and denies any bleeding. Patient does report a history of tonsillar cancer with radiation which is caused multiple problems throughout her body. Patient reports a history of herpes but has never had any vaginal herpes lesions. Patient takes famciclovir twice daily regularly. Patient denies any history of STDs. She denies any vaginal surgeries other than tubal. Patient denies any recent antibiotic use. We will go ahead and do all of the swabs today including herpes given on exam she does appear to have some ulcer-like lesions. We will do a wet prep and vaginal culture along with STD testing. We will go ahead and change the famciclovir to acyclovir for 3 days and treat as a herpes breakout. We will also go ahead and treat with Flagyl at this time. Patient is to follow-up with PCP regarding swabs to find out results. Return to the ER with any new or worsening symptoms. We also discussed things she can do at home including avoiding scented soaps, pads, loose clothing. Patient verbalized understanding and is in agreement with this treatment plan. Critical Care Time Critical Care Time: Critical Care Time: No Discharge Plan Discharge Patient Disposition: Home Clinical Impression: Herpes simplex, Atrophic vaginitis Condition: Stable Prescriptions: New metronidazole 500 mg tablet 500 mg PO BID 10 Days Qty: 20 RF: 0 acyclovir 400 mg tablet 800 mg PO TID 3 Days Qty: 18 RF: 0 Held famciclovir 500 mg tablet 500 mg PO BID Qty: 60 RF: 5 Hold Instructions: Resume on 10/20/21. Hold until finished with acyclovir No Action hydrocodone-acetaminophen 10-325 mg tablet 1 tab PO Q6H PRNRF: 0 budesonide [Pulmicort] 0.5 mg/2 mL suspension for nebulization 0.5 mg INHALATION BID PRNRF: 0 baclofen 10 mg tablet 10 mg PO TID RF: 0 triamcinolone acetonide 0.1 % lotion 1 applic topical DAILY RF: 0 buspirone 10 mg tablet 20 mg PO BID 30 Days Qty: 120 RF: 2 fluoxetine 20 mg capsule 60 mg PO DAILY Qty: 90 RF: 2 metronidazole [Metrogel Vaginal] 0.75 % gel 1 appful vaginal BID 5 Days Qty: 70 RF: 0 fluconazole [Diflucan] 150 mg tablet 150 mg PO Q3D 9 Days Qty: 3 RF: 0 nystatin 100,000 unit/gram cream 1 applic topical BID 7 Days Qty: 30 RF: 1 albuterol sulfate 2.5 mg /3 mL (0.083 %) solution for nebulization 2.5 mg INHALATION Q6H Qty: 75 RF: 5 albuterol sulfate [Ventolin HFA] 90 mcg/actuation HFA aerosol inhaler 2 puff INHALATION QID PRN (Reason: shortness of breath or wheezing) Qty: 8.5 RF: 2 cetirizine [Zyrtec] 10 mg tablet 10 mg PO DAILY Qty: 30 RF: 5 ergocalciferol (vitamin D2) 1,250 mcg (50,000 unit) capsule 1,250 mcg PO .weekly Qty: 4 RF: 5 ibandronate [Boniva] 150 mg tablet 150 mg PO .monthly Qty: 1 RF: 5 levothyroxine 200 mcg tablet 200 mcg PO DAILY Qty: 30 RF: 5 levothyroxine 25 mcg tablet 25 mcg PO DAILY Qty: 30 RF: 2 meloxicam [Mobic] 15 mg tablet 15 mg PO DAILY PRN (Reason: joint pain) Qty: 30 RF: 5 oxybutynin chloride 5 mg tablet 5 mg PO BID Qty: 60 RF: 5 prenat.vits,bull,wwv-snhf-eahyl Tablet 1 tab PO DAILY 30 Days Qty: 30 RF: 5 rosuvastatin [Crestor] 20 mg tablet 20 mg PO DAILY Qty: 30 RF: 5 guaifenesin [Mucinex] 600 mg tablet extended release 12hr 600 mg PO BID PRN (Reason: congestion) Qty: 60 RF: 5 estradiol 0.01 % (0.1 mg/gram) cream 2 g VAGINAL .2 times a week Qty: 42.5 RF: 2 sucralfate [Carafate] 1 gram tablet 1 g PO BID Qty: 60 RF: 2 Discharge Orders: Discharge ED (Routine); Ordered 10/17/21 Ordered By: Leyda Doll Referrals: Sharlene Thomason, PROFESSIONAL NURSING TUTOR-C [Primary Care Provider] - Discharge Diet: Usual diet Discharge Activity: Resume usual activity Patient Instructions: Opioid Safety Activity Restrictions/Additional Instructions: Take medications as prescribed. Hold famciclovir until finished with acyclovir then restart. Avoid any pads with sent or tight fitting clothing. Cotton underwear recommended. Avoid any scented soaps. Follow-up with PCP regarding results of vaginal swabs. Return to the ER with any new or worsening symptoms. Coding Level of Care Code ED [facility] for Jacquelin Moreira
[2021-10-17 14:24] VITALS: BP 113/74; PULSE 70; RESP 16; TEMP 36.8; O2SAT 96
[2021-10-22 22:08] LABS: HSV 1 DNA NOT DETECTED; HSV 2 DNA NOT DETECTED; HSV Source vaginal
== END 2021-10-17 14:25 | disposition home or self-care (01) ==
PROVIDERS: Emergency Provider Physician Assistant; PCP Nurse Practitioner
DX: B00.9 Herpesviral infection, unspecified (principal); N95.2 Postmenopausal atrophic vaginitis; E78.2 Mixed hyperlipidemia; Z87.891 Personal history of nicotine dependence
CPT/HCPCS: 87070; 87205; 87210; 87491; 87530; 87591; 87661; 99282

== ENCOUNTER → 2021-10-31 09:46 | Outpatient (BNVA) | payer MEDICARE, MEDICAID, SELFPAY | PROVIDERS: PCP Nurse Practitioner; Visit Provider Social Worker Clinical | DX: F33.2 Major depressive disorder, recurrent severe without psychotic features (principal) | CPT/HCPCS: 90832 ==

== ENCOUNTER → 2021-11-18 08:54 | Outpatient (BNVA) | payer MEDICARE, MEDICAID, SELFPAY | PROVIDERS: PCP Nurse Practitioner; Visit Provider Specialist | DX: G56.02 Carpal tunnel syndrome, left upper limb (principal); Z87.891 Personal history of nicotine dependence | CPT/HCPCS: 95908 ==

== ENCOUNTER → 2021-11-24 09:34 | Outpatient (BNVA) | payer MEDICARE, MEDICAID, SELFPAY | PROVIDERS: PCP Nurse Practitioner; Visit Provider Obstetrics & Gynecology | DX: E16.3 Increased secretion of glucagon (principal); L73.2 Hidradenitis suppurativa | CPT/HCPCS: 83036 ==

== ENCOUNTER 2021-12-22 13:37 | Outpatient (CLI) | payer MEDICARE, MEDICAID, SELFPAY ==
--- NOTE | 2021-12-22 13:53 | MR_ITS ---
WS: [id number] MRI LUMBAR SPINE NONCONTRAST TECHNIQUE: Sagittal T1, T2 and STIR imaging. Axial T1 and T2 imaging. CLINICAL INFORMATION: M47.27 - Other spondylosis with radiculopathy, lumbosacra... COMPARISON: MRI 11 FINDINGS: Mild lumbar curve. No acute compression. No high-grade central canal stenosis. Mild annular bulging. Mild facet arthropathy. Spinal canal and foramen are patent. L1-L2: Mild annular bulging. Mild facet arthropathy. Spinal canal and foramen are patent. L2-L3: Normal L3-L4: Mild annular bulging in combination with facet arthropathy and ligamentum flavum hypertrophy r esults in moderate central canal stenosis. Impingement on the traversing L4 nerve roots bilaterally. This appears slightly progressed compared to 2015. Progressed narrowing of the RIGHT subarticular rec ess. Mild bilateral foraminal narrowing. L4-L5: Mild annular bulging. Mild facet arthropathy. Mild LEFT greater than RIGHT foraminal narrowing . Slight encroachment on the exiting LEFT L4 nerve root. L5-S1: No significant disc bulging. Moderate LEFT facet arthropathy. Spinal canal and foramen are pat ent. Visualized pelvic bony structures: Normal. Paravertebral soft tissues: Normal. MR/MR lumbar spine wo con* [id number] IMPRESSION: 1. Mild lumbar curve. No acute compression. No high-grade central canal stenos is. 2. Moderate central canal stenosis L3-L4 due to disc bulging with facet arthro ameya and ligamentum flavum hypertrophy. Impingement on the RIGHT greater than LEFT subarticular recess. Central canal stenosis appears slightly progressed co mpared to 2014 3. Mild annular bulging L4-L5 with slight narrowing of the LEFT greater than R IGHT subarticular recess. 4. Mild bilateral foraminal narrowing L3-L4 and LEFT L4-L5. Slight contact of the exiting LEFT L4 nerve root. 5. Moderate facet arthropathy L3-L4 L4-L5 and LEFT L5-S1.
--- NOTE | 2021-12-22 13:54 | XR_ITS ---
WS: [id number] Right hip, AP and frog-leg views, 12/22/2021 Clinical Data: M25.551 - Pain in right hip Comparison: None. Findings: No fractures or dislocations are seen. The hip joint is intact. The soft tissues are not remarkable. The adjacent pelvis is normal. XR/XR hip RT 2-3V wo/w pel* [id number] Impression: Negative right hip. Tonnis classification: grade 0: normal radiographs
== END 2021-12-22 13:38 | disposition home or self-care (01) ==
LOC: RAD 13:38
PROVIDERS: PCP Nurse Practitioner; Visit Provider Nurse Practitioner
DX: M47.27 Other spondylosis with radiculopathy, lumbosacral region (principal); M48.061 Spinal stenosis, lumbar region without neurogenic claudication; M25.551 Pain in right hip
CPT/HCPCS: 72148; 73502

== ENCOUNTER → 2022-01-12 08:11 | Outpatient (BNVA) | payer MEDICARE, MEDICAID, SELFPAY | PROVIDERS: PCP Nurse Practitioner; Visit Provider Nurse Practitioner | DX: E55.9 Vitamin D deficiency, unspecified (principal); E03.8 Other specified hypothyroidism | CPT/HCPCS: 80053; 80061; 82306; 84443; 85025 ==

== ENCOUNTER 2022-01-13 14:29 | Outpatient (CLI) | payer MEDICARE, MEDICAID, SELFPAY ==
--- NOTE | 2022-01-13 14:43 | XR_ITS ---
WS: [id number] XR chest 2V* [id number] REASON FOR EXAM: MALIGNANT NEOPLASM OF TONSIL, INSPECIFIED, ACUTE SINUSITIS FINDINGS: The chest is unchanged compared to 09/30/2018. Mild tortuosity of thoracic aorta without aneurysmal dilatation. The heart is not enlarged. Calcified granulomatous disease in both hemithoraces. No active pulmonary parenchymal pleural disease is noted. No lung nodules are identified. No significant abnormality of the bony thorax. XR/XR chest 2V* [id number] IMPRESSION: No acute chest abnormality.
== END 2022-01-13 14:30 | disposition home or self-care (01) ==
PROVIDERS: PCP Nurse Practitioner; Visit Provider Specialist
DX: C09.9 Malignant neoplasm of tonsil, unspecified (principal); J01.80 Other acute sinusitis
CPT/HCPCS: 71046

== ENCOUNTER → 2022-02-02 13:44 | Outpatient (BNVA) | payer MEDICARE, MEDICAID, SELFPAY | PROVIDERS: PCP Nurse Practitioner; Visit Provider Nurse Practitioner Psychiatric/Mental Health | DX: F32.4 Major depressive disorder, single episode, in partial remission (principal); L50.9 Urticaria, unspecified | CPT/HCPCS: 99213 ==

== ENCOUNTER 2022-02-07 17:14 | Emergency (ER) | payer MEDICARE, MEDICAID, SELFPAY ==
[2022-02-07 17:28] VITALS: BP 113/47; PULSE 89; RESP 18; TEMP 36.1; O2SAT 93; BMI 33.3
--- NOTE | 2022-02-07 17:35 | ED_ITS ---
HPI - Female Genitourinary General: Chief complaint: Urogenital-Female Stated complaint: Says her privates iches and bleeds Time Seen by Provider: 02/07/22 17:35 History of Present Illness: 66-year-old female comes in today with complaints of vaginal swelling and irritation. Patient has been dealing with this before [place] of . Patient was seen in October in the emergency department and was evaluated with only noting some mild yeast on swabs. 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 Patient is scheduled to follow back up with her DYE BOARDING MACHINE OPERATOR but continues to have significant discomfort. Patient also has some HSP which is most likely complicating her atrophic vaginitis. Patient reports using vaginal estrogen, hydrocortisone cream, and badges still with minimal relief. Associated symptoms: Deny nausea Review of Systems General: Reports: 10 or more systems reviewed and unremarkable except in HPI and below Const: Denies: fever(s) Card: Denies: chest pain Resp: Denies: dyspnea GI: Denies: nausea, vomiting or diarrhea : Reports: other (Vaginal swelling and pain) Musc: Denies: back pain Skin/Breast: Denies: rash PFS ED PFSH: Medical History (Updated 02/07/22 @ 17:58 by GANESH Conte) Acid reflux Adult onset hypothyroidism Herpes simplex History of eustachian tube dysfunction History of radiation therapy Insomnia, persistent Lumbosacral spondylosis with radiculopathy Major depressive disorder in partial remission Major depressive disorder in partial remission Major depressive disorder, recurrent episode Metabolic syndrome Mixed hyperlipidemia Mixed incontinence urge and stress Obstructive sleep apnea Osteoporosis, post-menopausal Psychiatric care Seasonal allergic rhinitis due to pollen Spondylolisthesis, cervical region FLIP (stress urinary incontinence, female) Vitamin D deficiency Surgical History History of bilateral tubal ligation History of cancer tonsil History of colonoscopy with polypectomy History of D&C History of dental surgery History of left oophorectomy History of salpingectomy History of thyroid surgery Family History Father Hypertension Mother No problems noted. Sister Diabetes Hyperlipidemia Brother Cancer bone cancer Family/Other Breast cancer Maternal Aunt Denies family history of CAD (coronary artery disease) Clotting disorder Chronic kidney disease (CKD) Bleeding disorder Thyroid disease Stroke Social History Smoking and tobacco status: former smoker Quit status (tobacco): has quit using tobacco Year quit tobacco: 2012 Second hand smoke exposure: No Smoking risk assessment/counseling performed?: No Alcohol intake: never Desire information about alcohol rehabilitation?: No Counseling given: No Desire information about substance/drug rehabilitation?: No Counseling given: No Adopted: No Caregiver/support person: No Lives independently: Yes Household members: spouse Housing: House Marital status: Number of children: 2 service: No Current occupational status: unemployed History of recent travel: No Current gender identity: Female Female Reproductive History: Para: 2 Physical Exam Const: COMMON NORMALS: alert HENMT: COMMON NORMALS: normocephalic HEAD & SCALP: normocephalic MOUTH: Normal oral and palatal mucosa present THROAT: posterior oropharynx normal Neck/C-Spine: COMMON NORMALS: full ROM Resp: COMMON NORMALS: normal respiratory effort Cardio: COMMON NORMALS: regular rate and regular rhythm RATE: regular rate RHYTHM: regular rhythm GI: COMMON NORMALS: Soft to palpation and non-tender PALPATION: Yes Soft to palpation : EXTERNAL FEMALE EXAM: Yes erythema and Yes external swelling Extremity: COMMON NORMALS: normal to inspection Neuro: SENSORIUM/ORIENTATION: Yes alert Skin: LESIONS: lesion noted (HSP bilateral groin) Course Vital Signs: Vital signs: Vital Signs Temperature 97.0 F L 02/07/22 17:28 Pulse Rate 89 02/07/22 17:28 Respiratory Rate 18 02/07/22 17:28 Blood Pressure 113/47 02/07/22 17:28 Pulse Oximetry 93 02/07/22 17:28 [facility] - Female Medical Decision Making 66-year-old female comes in today with complaints of swelling and irritation to the vaginal area. On exam patient has significant swelling and redness to the vaginal area. Patient also has HSP lesions to the groin. No signs of abscess formation is noted. Vital signs are normal. Differential diagnosis includes bacterial vaginosis, candidiasis, atrophic vaginitis. Review of the record noted that patient had gonorrhea and Chlamydia testing done in October that was negative. At that time she did have a few yeast cells but everything else was negative. The repeat wet prep today did not have any significant abnormality. A genital culture and gonorrhea and Chlamydia testing was sent to lab. Recommended patient avoid detergents and any other substances but maybe try some coconut oil for skin irritation. We will also cover patient with some clindamycin 153 times a day for [address] patient on some prednisone for the next few days for swelling and discomfort. Patient was recommended to avoid any other lotions or substances in her genital area to prevent irritation. Discharge Plan Discharge Patient Disposition: Home Clinical Impression: Atrophic vaginitis Condition: Stable Prescriptions: New clindamycin HCl 150 mg capsule 150 mg PO Q8H 7 Days Qty: 21 0RF prednisone 20 mg tablet 20 mg PO BID 5 Days Qty: 10 0RF hydrocodone-acetaminophen 5-325 mg tablet 1 tab PO Q8H PRN (Reason: pain) Qty: 7 0RF No Action hydrocodone-acetaminophen 10-325 mg tablet 1 tab PO Q6H PRN0RF budesonide [Pulmicort] 0.5 mg/2 mL suspension for nebulization 0.5 mg INHALATION BID PRN0RF nystatin 100,000 unit/gram cream 1 applic topical BID 7 Days Qty: 30 1RF famciclovir 500 mg tablet 500 mg PO BID Qty: 60 5RF Hold Instructions: Resume on 10/20/21. Hold until finished with acyclovir levothyroxine 50 mcg tablet 50 mcg PO DAILY Qty: 30 2RF Rx Instructions: add 50mcg to [id number] daily ergocalciferol (vitamin D2) 1,250 mcg (50,000 unit) capsule 1,250 mcg PO .weekly Qty: 4 5RF albuterol sulfate 2.5 mg /3 mL (0.083 %) solution for nebulization 2.5 mg INHALATION Q6H Qty: 75 5RF cetirizine [Zyrtec] 10 mg tablet 10 mg PO DAILY Qty: 90 1RF estradiol 0.01 % (0.1 mg/gram) cream 2 g VAGINAL .2 times a week Qty: 42.5 2RF guaifenesin [Mucinex] 600 mg tablet extended release 12hr 600 mg PO BID PRN (Reason: congestion) Qty: 60 5RF ibandronate [Boniva] 150 mg tablet 150 mg PO .monthly Qty: 1 5RF levothyroxine 200 mcg tablet 200 mcg PO DAILY Qty: 30 5RF oxybutynin chloride 5 mg tablet 5 mg PO BID Qty: 60 5RF prenat.vits,bull,ezj-fsni-vgzuy Tablet 1 tab PO DAILY 30 Days Qty: 30 5RF rosuvastatin [Crestor] 20 mg tablet 20 mg PO DAILY Qty: 30 5RF Ozempic 0.25 mg or 0.5 mg(2 mg/1.5 mL) pen injector 0.25 mg SUBCUT .weekly Qty: 1.5 2RF sucralfate [Carafate] 1 gram tablet 1 g PO BID Qty: 60 5RF clobetasol 0.05 % cream 1 applic topical BID 14 Days Qty: 45 0RF Rx Instructions: use twice daily for two weeks only do NOT use longer than 2 weeks triamcinolone acetonide 0.1 % lotion 1 applic topical DAILY Qty: 60 2RF fluoxetine 20 mg capsule 60 mg PO DAILY Qty: 90 2RF Rx Instructions: Take 3 capsules daily every morning buspirone 10 mg tablet 20 mg PO BID 30 Days Qty: 120 2RF Rx Instructions: Take 2 tablets by mouth every morning and night albuterol sulfate [Ventolin HFA] 90 mcg/actuation HFA aerosol inhaler 2 puff INHALATION QID PRN (Reason: shortness of breath or wheezing) Qty: 8.5 2RF Discharge Orders: Discharge ED (Routine); Ordered 02/07/22 Ordered By: Chad Trinidad Referrals: Sharlene Thomason, SENIOR MECHANICAL PROJECT MANAGERMiriamC [Primary Care Provider] - Patient Instructions: Vaginal Atrophy (ED) Activity Restrictions/Additional Instructions: Hold vaginal estrogen, and any ezfd-hzz-[id number] creams or preparations. Hold topical steroids. Take antibiotic as directed. Use coconut oil for your vaginal emollient as needed for discomfort. Avoid strong soaps or detergents in your baths or showers. Take steroids by mouth to help with swelling. Drink plenty of water with medication. Coding Level of Care Code ED Occupational Health Nurse Supervisor for Chg Fwd Exam Comprehensive
[2022-02-07] MEDS: predniSONE 20 mg Tablet 40 MG PO (19:11)
[2022-02-07] MEDS: clindamycin 150 mg Capsule PO (19:11)
== END 2022-02-07 19:14 | disposition home or self-care (01) ==
PROVIDERS: Emergency Provider Nurse Practitioner Family; PCP Nurse Practitioner
DX: N95.2 Postmenopausal atrophic vaginitis (principal); N76.0 Acute vaginitis; B96.20 Unspecified Escherichia coli [E. coli] as the cause of diseases classified elsewhere; Z87.891 Personal history of nicotine dependence; Z79.891 Long term (current) use of opiate analgesic; Z79.890 Hormone replacement therapy; Z79.51 Long term (current) use of inhaled steroids
CPT/HCPCS: 87070; 87077; 87186; 87205; 87210; 87491; 87591; 99283; J7512

== ENCOUNTER 2022-02-10 06:00 | Outpatient (RCR) | payer MEDICARE, MEDICAID, SELFPAY | END 2022-03-10 23:59 | disposition home or self-care (01) | LOC: TOT 06:00 | PROVIDERS: PCP Nurse Practitioner; Referring Provider Nurse Practitioner; Visit Provider Nurse Practitioner | DX: M25.642 Stiffness of left hand, not elsewhere classified (principal) | CPT/HCPCS: 97166; L3906 ==

== ENCOUNTER → 2022-03-23 10:51 | Outpatient (BNVA) | payer MEDICARE, MEDICAID, SELFPAY | PROVIDERS: PCP Nurse Practitioner; Visit Provider Nurse Practitioner | DX: E03.8 Other specified hypothyroidism (principal) | CPT/HCPCS: 84439; 84443; 84481 ==

== ENCOUNTER 2022-06-08 11:19 | Outpatient (CLI) | payer MEDICARE, MEDICAID, SELFPAY ==
--- NOTE | 2022-06-08 11:37 | MR_ITS ---
WS: [id number] MRI HEAD WITH CONTRAST WITH ATTENTION TO THE INTERNAL AUDITORY CANALS TECHNIQUE: Sagittal T1, T2 axial, T2 axial flair, axial susceptibility weighted imaging, axial diffus ion weighted images, and coronal T2 images were obtained. Pre and post T1 axial and post T1 coronal i mages. ADC and FSPGR images. Post gadolinium images with attention to the internal auditory canals. A xial fiesta imaging. CLINICAL INFORMATION: SENSORINEURAL HEARING LOSS,BILATERAL COMPARISON: CT head May 21, 2021 FINDINGS: No evidence of restricted diffusion to suggest acute ischemia. Ventricular system and basal cisterns are patent. Mild small vessel changes with mild parenchymal volume loss. Small vessel changes have pr ogressed since 2019. Normal posterior fossa. Normal vascular flow voids at the skull base. No extra-axial fluid collection s. No mass or mass effect. Mucosal thickening in the mastoid tips. Paranasal sinuses are well aerated . No hemosiderin on susceptibly weighted images. Proximal 7th and 8th cranial nerves are normal. Normal trigeminal nerve root entry zones. No evidence of enhancing IAC or CP angle mass. Normal cavernous sinuses and Meckel's cave. No abnormal intracran ial enhancement. Normal dural venous sinuses. MR/MR iac's wo/w con* [id number] IMPRESSION: 1. No evidence of restricted diffusion to suggest acute ischemia. 2. Mild small vessel changes with mild parenchymal volume loss. 3. Mild mucosal thickening in the LEFT greater than RIGHT mastoid air cells. P aranasal sinuses are well aerated. 4. Proximal 7th and 8th cranial nerves are normal in appearance. Normal trigem inal nerve root entry zones. No evidence of enhancing IAC or CP angle mass. 5. No abnormal intracranial enhancement.
[2022-06-08] MEDS: gadobenate dimeglumine 20 mL vial IV (12:54)
== END 2022-06-08 11:20 | disposition home or self-care (01) ==
LOC: RAD 11:19
PROVIDERS: PCP Nurse Practitioner; Visit Provider Otolaryngology
DX: H90.3 Sensorineural hearing loss, bilateral (principal); Z51.81 Encounter for therapeutic drug level monitoring
CPT/HCPCS: 70553; 80306

== ENCOUNTER → 2022-06-19 11:54 | Outpatient (BNVA) | payer MEDICARE, MEDICAID, SELFPAY | PROVIDERS: PCP Nurse Practitioner Family; Visit Provider Nurse Practitioner | DX: J44.9 Chronic obstructive pulmonary disease, unspecified (principal); J30.1 Allergic rhinitis due to pollen; N95.2 Postmenopausal atrophic vaginitis; L50.9 Urticaria, unspecified; M81.0 Age-related osteoporosis without current pathological fracture; E03.8 Other specified hypothyroidism; G47.00 Insomnia, unspecified; E55.9 Vitamin D deficiency, unspecified; E78.2 Mixed hyperlipidemia; R73.03 Prediabetes; K21.9 Gastro-esophageal reflux disease without esophagitis; B00.9 Herpesviral infection, unspecified; Z12.39 Encounter for other screening for malignant neoplasm of breast; E04.9 Nontoxic goiter, unspecified | CPT/HCPCS: 80053; 80061; 82607; 84443; 85025 ==

== ENCOUNTER → 2022-06-24 13:40 | Outpatient (BNVA) | payer MEDICARE, MEDICAID, SELFPAY | PROVIDERS: PCP Nurse Practitioner; Visit Provider Family Medicine | DX: J02.9 Acute pharyngitis, unspecified (principal); R50.9 Fever, unspecified; H66.90 Otitis media, unspecified, unspecified ear | CPT/HCPCS: 87071; 87635; 87880 ==

== ENCOUNTER 2022-08-13 10:58 | Outpatient (CLI) | payer MEDICARE, MEDICAID, SELFPAY ==
--- NOTE | 2022-08-13 11:06 | MM_ITS ---
WS: [id number] Bilateral screening 3D tomosynthesis digital mammogram, 08/13/2022 Clinical Data: Z12.39 - Encounter for other screening for malignant neop... Comparison: 03/21/2021, 10/10/2019, 08/23/2018, 08/03/2017, 07/09/2016, 06/24/2015, 03/30/2014, 05/24/2012 , 04/22/2009, 04/10/2008, 03/29/2007. Findings: The breast parenchymal pattern shows fat replacement. No spiculated masses or clustered calcification s are seen. There are no secondary signs of carcinoma. There are lymph nodes in both axilla. MM/[place] [id number] Impression: 1. Negative bilateral mammogram unchanged. 2. Recommend annual screening mammograms. BIRADS: 1-Negative FOLLOW UP: 1 Year Follow-up The CAD maturity checker was used.
== END 2022-08-13 10:59 | disposition home or self-care (01) ==
LOC: RAD 10:58
PROVIDERS: PCP Nurse Practitioner; Visit Provider Nurse Practitioner
DX: Z12.31 Encounter for screening mammogram for malignant neoplasm of breast (principal)
CPT/HCPCS: 77063; 77067

== ENCOUNTER 2022-08-18 10:44 | Outpatient (CLI) | payer MEDICARE, MEDICAID, SELFPAY ==
--- NOTE | 2022-08-18 11:00 | US_ITS ---
WS: [id number] Thyroid ultrasound, 08/18/2022 Clinical Data: E03.8 - Other specified hypothyroidism Comparison: Thyroid ultrasound, 12/25/2019 Findings: The right lobe of thyroid measures 4.2 cm x 0.9 cm x 0.8 cm. There are several right cervical lymph n odes present. The left lobe is absent The isthmus measured 0.2 mm. The echotexture of the right lobe of the thyroid is uniform. No nodules, cyst or masses are seen. US/US thyroid [id number] Impression: 1. Normal right lobe of thyroid. 2. Absent left lobe of thyroid.
== END 2022-08-18 10:45 | disposition home or self-care (01) ==
PROVIDERS: PCP Nurse Practitioner; Visit Provider Nurse Practitioner
DX: E03.8 Other specified hypothyroidism (principal); E04.9 Nontoxic goiter, unspecified
CPT/HCPCS: 76536

== ENCOUNTER → 2022-10-13 14:46 | Outpatient (BNVA) | payer MEDICARE, MEDICAID, SELFPAY | PROVIDERS: PCP Nurse Practitioner; Visit Provider Nurse Practitioner | DX: J44.9 Chronic obstructive pulmonary disease, unspecified (principal); J30.1 Allergic rhinitis due to pollen; G47.00 Insomnia, unspecified; E55.9 Vitamin D deficiency, unspecified; N95.2 Postmenopausal atrophic vaginitis; B00.9 Herpesviral infection, unspecified; L50.9 Urticaria, unspecified; M54.9 Dorsalgia, unspecified; G89.29 Other chronic pain; M81.0 Age-related osteoporosis without current pathological fracture; E78.2 Mixed hyperlipidemia; R73.03 Prediabetes; K21.9 Gastro-esophageal reflux disease without esophagitis; E03.8 Other specified hypothyroidism; E78.00 Pure hypercholesterolemia, unspecified; M47.27 Other spondylosis with radiculopathy, lumbosacral region | CPT/HCPCS: 80053; 80061; 82306; 84443 ==

== ENCOUNTER 2022-10-30 10:35 | Outpatient (RCR) | payer MEDICARE, MEDICAID, SELFPAY | END 2022-11-10 23:59 | disposition home or self-care (01) | LOC: SOT 10:35 | PROVIDERS: PCP Nurse Practitioner; Visit Provider Nurse Practitioner | DX: M25.642 Stiffness of left hand, not elsewhere classified (principal) | CPT/HCPCS: 97110; 97166; L3809 ==

== ENCOUNTER 2022-11-11 06:00 | Outpatient (RCR) | payer MEDICARE, MEDICAID, SELFPAY | END 2022-12-08 23:59 | disposition home or self-care (01) | LOC: SOT 06:00 | PROVIDERS: PCP Nurse Practitioner; Visit Provider Nurse Practitioner | DX: M25.642 Stiffness of left hand, not elsewhere classified (principal) | CPT/HCPCS: 97018; 97022; 97110; 97140 ==

== ENCOUNTER 2022-12-09 06:00 | Outpatient (RCR) | payer MEDICARE, MEDICAID, SELFPAY | END 2023-01-08 23:59 | disposition home or self-care (01) | LOC: SOT 06:00 | PROVIDERS: PCP Nurse Practitioner; Visit Provider Nurse Practitioner | DX: M25.642 Stiffness of left hand, not elsewhere classified (principal) | CPT/HCPCS: 97018; 97110; 97140 ==

== ENCOUNTER → 2023-01-01 09:01 | Outpatient (BNVA) | payer MEDICARE, MEDICAID, SELFPAY | PROVIDERS: PCP Nurse Practitioner; Visit Provider Nurse Practitioner | DX: E78.00 Pure hypercholesterolemia, unspecified (principal); E55.9 Vitamin D deficiency, unspecified; E03.8 Other specified hypothyroidism; R73.9 Hyperglycemia, unspecified | CPT/HCPCS: 80053; 80061; 82306; 84443; 85025 ==

== ENCOUNTER → 2023-01-04 13:42 | Outpatient (BNVA) | payer MEDICARE, MEDICAID, SELFPAY | PROVIDERS: PCP Nurse Practitioner; Visit Provider Nurse Practitioner | DX: J44.9 Chronic obstructive pulmonary disease, unspecified (principal); B37.0 Candidal stomatitis; R73.03 Prediabetes; J30.1 Allergic rhinitis due to pollen; E61.1 Iron deficiency | CPT/HCPCS: 83550 ==

== ENCOUNTER → 2023-02-11 13:54 | Outpatient (BNVA) | payer MEDICARE, MEDICAID, OTHER, SELFPAY | PROVIDERS: PCP Nurse Practitioner; Visit Provider Dermatology | DX: L73.2 Hidradenitis suppurativa (principal); L81.4 Other melanin hyperpigmentation; L58.9 Radiodermatitis, unspecified | CPT/HCPCS: 99214 ==

== ENCOUNTER → 2023-02-18 09:28 | Outpatient (BNVA) | payer MEDICARE, MEDICAID, OTHER, SELFPAY | PROVIDERS: PCP Nurse Practitioner; Referring Provider Dermatology; Visit Provider Student in an Organized Health Care Education/Training Program | DX: G56.02 Carpal tunnel syndrome, left upper limb (principal); M18.12 Unilateral primary osteoarthritis of first carpometacarpal joint, left hand | CPT/HCPCS: 73110; 99204 ==

== ENCOUNTER 2023-03-16 06:30 | Day surgery (SDC) | payer MEDICARE, MEDICAID, SELFPAY ==
[2023-03-16] VITALS (7 sets, daily range): BP systolic 106–140; BP diastolic 56–87; PULSE 64–76; RESP 14–18; TEMP 36.1–36.7; O2SAT 92–95
[2023-03-16] MEDS: acetaminophen 1,000 MG/100 ML PIGGYBACK 400 MG IV (07:02)
[2023-03-16] MEDS: ketorolac 30 mg/mL INJ IVP (07:02)
[2023-03-16] MEDS: sodium chloride 0.9% 1,000 ML 30 ML IV (07:04)
--- NOTE | 2023-03-16 07:04 | W.PM.OPSUD ---
Surgery/Procedure H&P Update DATE OF PROCEDURE: March 16, 2023 DATE H&P PERFORMED: 02/18/23 CHANGES TO PREVIOUS DOCUMENTATION: None PREOP DIAGNOSIS: Left Carpal Tunnel syndrome PRIMARY INDICATION FOR PROCEDURE: Left carpal tunnel release PLANNED PROCEDURE: Operation Date: 03/16/23 08:00 Proposed Procedures p left carpal tunnel release:[id number],G56.00(Left) - Franklin Hodges DO
--- NOTE | 2023-03-16 07:30 | ANES.PREANE2 ---
Pre-Anesthetic Assessment Height/Weight: Height 1.57 m Weight 86.183 kg Temp Pulse Resp BP Pulse Ox O2 Del Method 98.1 F 76 18 112/64 95 Room Air 03/16/23 06:54 03/16/23 06:54 03/16/23 06:54 03/16/23 06:54 03/16/23 06:54 03/16/23 06:54 Preop Diagnosis: Left Carpal Tunnel syndrome Operation Date: 03/16/23 08:00 Proposed Procedures p left carpal tunnel release:[id number],G56.00(Left) - Franklin Carroll, Familial anesthetic complications: None Was Beta Erin taken within 24 hours: N/A Was Clonidine taken within 24 hours: N/A Last intake: Intake Last Liquid Date 03/15/23 Last Liquid Time 22:00 Last Solid Date 03/15/23 Last Solid Time 21:00 Social No alcohol and No tobacco Exam alert, oriented x 3, clear to auscultation bilaterally and regular rate & rhythm Airway Mallampati: Class II Dentition: false Comments: Comments: hx tonsillar cancer s/p radiation - states no residual, no lumps, no trouble swallowing or breathing Pulmonary Chronic Obstructive Pulmonary Disease and Sleep Apnea GI Gastroesophageal Reflux Disease Metabolic Diabetes Mellitus, Hyperlipidemia and Thyroid Disease Anesthetic Plan ASA status: 4 Anesthesia: MAC Risk of > 500 ml blood loss (7ml/kg in children): No Medications/Allergies Home Medications Medication Instructions Recorded Confirmed Last Taken Type hydrocodone 10 mg-acetaminophen 1 tab PO Q6H PRN Itching 06/27/20 03/16/23 03/14/23 History 325 mg tablet clindamycin phosphate 1 % lotion 1 applic topical BID #60 mL 05/30/22 03/16/23 03/16/23 Rx guaifenesin 600 mg tablet, 600 mg PO BID PRN congestion #60 06/19/22 03/15/23 03/15/23 Rx extended release 12 hr (Mucinex) tabs prenat.vits,bull,xzm-jaux-poiec 1 tab PO DAILY 30 days #30 tabs 06/19/22 03/15/23 03/15/23 Rx Disposable nebulizer circuit with #1 ea 07/14/22 03/04/23 Unknown Rx mask albuterol sulfate 2.5 mg/3 mL 2.5 mg (3 mL) inhalation Q6H #75 mL 10/13/22 03/16/23 Unknown Rx (0.083 %) solution for nebulization cetirizine 10 mg tablet (Zyrtec) 10 mg PO DAILY #90 tabs 10/13/22 03/16/23 03/16/23 Rx doxepin 25 mg capsule 25 mg PO .at bedtime #30 caps 10/13/22 03/16/23 Unknown Rx ergocalciferol (vitamin D2) 1,250 1,250 mcg PO .weekly #4 caps 10/13/22 03/15/23 03/14/23 Rx mcg (50,000 unit) capsule famciclovir 500 mg tablet 500 mg PO BID #60 tabs 10/13/22 03/16/23 03/16/23 Rx famotidine 40 mg tablet (Pepcid) 40 mg PO DAILY #30 tabs 10/13/22 03/16/23 03/16/23 Rx gabapentin 300 mg capsule 300 mg PO BID #60 caps 10/13/22 03/15/23 03/15/23 Rx ibandronate 150 mg tablet (Boniva) 150 mg PO .monthly #1 tab 10/13/22 03/16/23 03/09/23 Rx levothyroxine 200 mcg tablet 200 mcg PO DAILY #30 tabs 10/13/22 03/16/23 03/16/23 Rx rosuvastatin 20 mg tablet (Crestor) 20 mg PO DAILY #30 tabs 10/13/22 03/15/23 03/15/23 Rx sucralfate 1 gram tablet (Carafate) 1 g PO BID #60 tabs 10/13/22 03/16/23 03/16/23 Rx fluticasone propionate 50 1 spray intranasal BID 11/19/22 03/16/23 03/15/23 History mcg/actuation nasal spray,suspension triamcinolone acetonide 0.1 % 1 applic topical BID #454 grams 11/27/22 03/16/23 03/16/23 Rx topical cream albuterol sulfate 90 mcg/actuation 2 puff inhalation QID PRN 01/04/23 03/16/23 Unknown Rx aerosol inhaler (Ventolin HFA) shortness of breath or wheezing #8.5 grams montelukast 10 mg tablet 10 mg PO DAILY #30 tabs 01/04/23 03/15/23 03/15/23 Rx (Singulair) semaglutide 0.25 mg or 0.5 mg (2 0.5 mg (0.4 mL) SUBCUT .weekly 01/04/23 03/15/23 03/10/23 Rx mg/1.5 mL) subcutaneous pen #1.5 mL injector (Ozempic) estradiol 0.01% (0.1 mg/gram) 2 g vaginal .2 times a week #42.5 02/02/23 03/16/23 03/14/23 Rx vaginal cream grams nystatin 100,000 unit/mL oral 5 ml PO TID 14 days #210 mL 02/15/23 03/16/23 03/15/23 Rx suspension duloxetine 30 mg capsule,delayed See Rx Instructions PO DAILY #90 03/04/23 03/15/23 03/15/23 Rx release caps Allergies Allergy/AdvReac Type Severity Reaction Status Date / Time cyclobenzaprine Allergy rapid Verified 03/15/23 11:04 [From Flexeril] heart beat erythromycin base Allergy vomiting Verified 03/15/23 11:04 iron Allergy ADR-Diarrhe Verified 03/15/23 11:04 a nitrofurantoin Allergy ADR-Dizzine Verified 03/15/23 11:04 [From Macrobid] ss oxcarbazepine Allergy ADR-Dizzine Verified 03/15/23 11:04 [From Trileptal] ss Sulfa (Sulfonamide Allergy ALGY-Hives Verified 03/15/23 11:04 Antibiotics) topiramate [From Topamax] Allergy felt like Verified 03/15/23 11:04 feet were burning off Current Medications Generic Name Dose Route Start Last Admin Trade Name Freq PRN Reason Stop Dose Admin Sodium Chloride 1,000 mls @ 30 mls/hr 03/16/23 06:45 03/16/23 07:04 Sodium Chloride 0.9% IV 03/17/23 06:44 30 mls/hr .Q24H RAYMUNDO Administration PFSH Anesthesia Medical History Acid reflux Adult onset hypothyroidism Anxiety state, unspecified Herpes simplex History of eustachian tube dysfunction History of radiation therapy Insomnia, persistent Lumbosacral spondylosis with radiculopathy Major depressive disorder in partial remission Major depressive disorder in partial remission Major depressive disorder, recurrent episode Metabolic syndrome Mixed hyperlipidemia Mixed incontinence urge and stress Obstructive sleep apnea Osteoporosis, post-menopausal Psychiatric care Seasonal allergic rhinitis due to pollen Spondylolisthesis, cervical region FLIP (stress urinary incontinence, female) Vitamin D deficiency Surgical History History of bilateral tubal ligation History of bladder surgery device placed with wires that control the bladder History of cancer tonsil History of colonoscopy with polypectomy History of D&C History of dental surgery History of left oophorectomy History of salpingectomy History of thyroid surgery Family History Father Hypertension Mother No problems noted. Sister Diabetes Hyperlipidemia Brother Cancer bone cancer Family/Other Breast cancer Maternal Aunt Denies family history of CAD (coronary artery disease) Clotting disorder Chronic kidney disease (CKD) Bleeding disorder Thyroid disease Stroke Social History Smoking and tobacco status: former smoker Quit status (tobacco): has quit using tobacco Year quit tobacco: 2013 Second hand smoke exposure: No Smoking risk assessment/counseling performed?: No Alcohol intake: never Desire information about alcohol rehabilitation?: No Counseling given: No Substance/Drug Use: never Desire information about substance/drug rehabilitation?: No Counseling given: No Adopted: No Caregiver/support person: No Lives independently: Yes Household members: spouse Housing: House Marital status: Number of children: 2 service: No Current occupational status: unemployed Do you think of yourself as: Straight/Heterosexual Current gender identity: Female Female Reproductive History Para: 2 Data Anesthesia Cardiac Studies: No Data to Display
[2023-03-16] MEDS: ceFAZolin 2,000 MG in sodium chloride 0.9% (plus) 50 ML 100 MG IV (08:13)
[2023-03-16] MEDS: lidocaine-epi 1% 20 mL INJ INJECTION (08:38)
--- NOTE | 2023-03-16 08:55 | PM.OP2 ---
Brief Operative Note Date of procedure: 03/16/23 Pre-op diagnosis: Left carpal tunnel syndrome Post-op diagnosis: same Procedure Done: Left carpal tunnel release Surgeon: Franklin Hodges Estimated blood loss (mL): 1 Complications: None Post-op Plan: Patient taken to PACU in stable condition. Patient will receive appropriate discharge instructions as well as pain medication postoperatively we will follow-up in the orthopedic office in 2 weeks. Patient understands agrees to current plan. All questions answered. Condition: stable Disposition: same day Coding Level of Care Code Acute Code for Jacquelin Moreira
--- NOTE | 2023-03-16 08:56 | P.OP_ITS ---
Operative Report Date of procedure: March 16, 2023 Pre-op diagnosis: Preop Diagnosis Left Carpal Tunnel syndrome Procedure: Post-op diagnosis: Same Procedure done: Left carpal tunnel release Surgeon: Frnaklin Hodges DO Anesthesia: MAC (Local) Estimated blood loss: 1 mL Tourniquet time 8 minutes IV fluids: See anesthesia record Complications: None Findings: See operative report narrative Condition: stable Disposition: same day Brief History: Patient is a pleasant 67-year-old female with left carpal tunnel syndrome.? She has been worked up in the outpatient setting findings and physical examination consistent with this.patient conduction studies consistent with left carpal tunnel syndrome. .Through shared decision making in detail out of patient's risk benefits complication alternatives with surgical nonsurgical treatment options she agrees to proceed with surgical intervention of the left carpal tunnel release .? Patient understands and agrees with current plan.? All questions answered.? Patient elects to proceed with surgical intervention with carpal tunnel release. Procedure: Patient seen and evaluated in the preoperative holding area.? Consent was reviewed and signed with patient.? Correct extremity was marked.? Patient was seen evaluated by the anesthesia department once cleared for surgery was brought back to the operative suite.? Placement was placed onto the OR table in supine position all bony prominences were well-padded patient properly secured to the bed.? Left upper extremity was then placed onto an armboard.? A nonsterile tourniquet was applied to the left upper arm.? Patient underwent anesthesia per the anesthesia department.? Patient's left upper extremity was then prepped and draped in standard orthopedic fashion.? Final timeout performed.? Patient received appropriate preoperative antibiotics. Under sterile aseptic technique patient received local anesthesia over the preplanned carpal tunnel incision site. Esmarch was used to exsanguinate the left upper extremity and tourniquet was insufflated to 250 mmHg. A standard mini open carpal tunnel incision was made.? Starting distally at Resendiz's cardinal line in line with the fourth ray extending proximally distal to the wrist crease centered over the carpal tunnel.? Sharp scalpel incision was made through skin and subcutaneous tissue.? Self-retaining retractor was placed and the palmar fascia was identified.? This was then split longitudinally and direct visualization of the transverse carpal ligament was then made.? I then utilizing scalpel feathered through the transverse carpal ligament until I entered the floor of the transverse carpal tunnel ligament into the carpal tunnel.? Next I switched to dissection scissors and completed my release of the transverse carpal ligament distally with care to protect the recurrent motor branch.? I completely released into the palmar fat and until no entrapment was noted distally.? Care was made to protect the superficial palmar arch during my distal dissection.? Next I then placed a Stockton underneath the transverse carpal tunnel ligament to protect the contents of the carpal tunnel and subsequently utilizing dissection scissors under loupe magnification completely released the transverse carpal ligament proximally into the median antebrachial fascia.? Care was made to protect the palmar cutaneous branch by keeping my scissors curved ulnarly.? Once completely released, I then placed my Stock[place] and had appropriate decompression of the carpal tunnel proximally as well as distally.? I then inspected the contents of the carpal tunnel which showed an hourglass shape of the median nerve showing its compression.? No masses were noted.? Tendons appeared healthy.? Wound was then thoroughly irrigated.? Tourniquet deflated.? Hemostasis satisfactory with bipolar electrocautery.? I then closed the incision with interrupted nylon stitches.? Xeroform 4 x 4's and a bulky soft dressing was applied to the left upper extremity.? Patient was then awakened from anesthesia and taken to PACU in stable condition.? Patient tolerated procedure without complications. Disposition: Patient taken to PACU in stable condition recovering well.? Dressing clean dry and intact.? Patient will receive appropriate discharge instructions as well as pain medication postoperatively.? Patient to follow-up with me in the office in 2 weeks.? They understand they may be weightbearing as tolerated to the left hand.? Patient should keep incision clean dry and intact.? Patient understands if any questions or concerns may contact the office.
--- NOTE | 2023-03-16 08:56 | PM.PACU ---
PACU note Narrative: Patient taken to PACU in stable condition recovering well pain controlled. Dressings on in place clean dry and intact fingertips warm well-perfused brisk capillary refill less than 2 seconds she is able to wiggle fingers. She has decreased sensation secondary to local anesthesia. Exam: awake Disposition: discharged
--- NOTE | 2023-03-16 15:55 | ANE.PACU2 ---
Inpatient post-anesthesia follow up: Airway intact: Yes Vital signs: Temperature 97.3 F Pulse Rate 69 Respiratory Rate 16 Blood Pressure 140/70 Pulse Oximetry 95 Oxygen Delivery Me thod Room Air Oxygen Flow Rate Fraction of Inspir ed Oxygen Hydration adequate: Yes Nausea and vomiting: Yes Pain level: 1 Mental status: Baseline
== END 2023-03-16 09:40 | disposition home or self-care (01) ==
PROVIDERS: PCP Nurse Practitioner; Visit Provider Student in an Organized Health Care Education/Training Program
PROC: (CPT 64721; principal; 2023-03-16 07:50)
DX: G56.02 Carpal tunnel syndrome, left upper limb (principal); J44.9 Chronic obstructive pulmonary disease, unspecified; G47.30 Sleep apnea, unspecified; E11.9 Type 2 diabetes mellitus without complications; E78.5 Hyperlipidemia, unspecified; E03.9 Hypothyroidism, unspecified; Z79.891 Long term (current) use of opiate analgesic; Z87.891 Personal history of nicotine dependence
CPT/HCPCS: 64721; J0131; J0690; J1885; J2370; J2704; J2795; J3010; J7030

== ENCOUNTER → 2023-04-01 14:26 | Outpatient (BNVA) | payer MEDICARE, SELFPAY | PROVIDERS: PCP Nurse Practitioner; Visit Provider Student in an Organized Health Care Education/Training Program | DX: G56.02 Carpal tunnel syndrome, left upper limb (principal) | CPT/HCPCS: 99024 ==

== ENCOUNTER → 2023-04-02 12:11 | Outpatient (BNVA) | payer MEDICARE, SELFPAY | PROVIDERS: PCP Nurse Practitioner; Visit Provider Nurse Practitioner | DX: E78.2 Mixed hyperlipidemia (principal); J44.9 Chronic obstructive pulmonary disease, unspecified; J30.1 Allergic rhinitis due to pollen; G47.00 Insomnia, unspecified; E55.9 Vitamin D deficiency, unspecified; N95.2 Postmenopausal atrophic vaginitis; B00.9 Herpesviral infection, unspecified; L50.9 Urticaria, unspecified; M54.9 Dorsalgia, unspecified; G89.29 Other chronic pain; M81.0 Age-related osteoporosis without current pathological fracture; R73.03 Prediabetes | CPT/HCPCS: 80053; 80061; 84443 ==

== ENCOUNTER → 2023-05-11 14:53 | Outpatient (BNVA) | payer MEDICARE, SELFPAY | PROVIDERS: PCP Family Medicine; Visit Provider Family Medicine | DX: B37.0 Candidal stomatitis (principal); J44.9 Chronic obstructive pulmonary disease, unspecified; R73.03 Prediabetes; E03.8 Other specified hypothyroidism; H66.93 Otitis media, unspecified, bilateral | CPT/HCPCS: 80053; 83036 ==

== ENCOUNTER → 2023-06-03 09:20 | Outpatient (BNVA) | payer MEDICARE, MEDICAID, SELFPAY | PROVIDERS: PCP Family Medicine; Visit Provider Student in an Organized Health Care Education/Training Program | DX: G56.01 Carpal tunnel syndrome, right upper limb; M18.12 Unilateral primary osteoarthritis of first carpometacarpal joint, left hand | CPT/HCPCS: 73130; 99214 ==

== ENCOUNTER 2023-06-23 14:13 | Outpatient (CLI) | payer MEDICARE, MEDICAID, SELFPAY ==
--- NOTE | 2023-06-23 14:30 | XR_ITS ---
WS: [id number] DEXA (DUAL ENERGY X-RAY ABSORPTIOMETRY) Bone mineral density was performed using a [employer] machine. HISTORY: osteoporosis COMPARISON: 12/12/2019 Lumbar spine BMD (L1-L4): 1.001 g/cm2 T score: -1.5 Z score: -0.6 Total hip BMD: Left: 0.860 g/cm2. T score: -1.2 Z score: -0.4 Right: 0.876 g/cm2. T score: -1.0 Z score: -0.2 10 year probability of a major osteoporotic fracture is 11.7%. Compared to the prior study from 12/12/2019. Lumbar spine bone mineral density has increased by 3.0%. Bilateral hips bone mineral density has decreased by 4.6%. IMPRESSION: OSTEOPENIA based upon the WHO classification for females. Significant increase in bone mineral density within the lumbar spine since the prior study. Significant decrease in bone mineral density in the hips since the prior study.
== END 2023-06-23 14:14 | disposition home or self-care (01) ==
LOC: RAD 14:15
PROVIDERS: PCP Family Medicine; Visit Provider Family Medicine
DX: M81.0 Age-related osteoporosis without current pathological fracture (principal)
CPT/HCPCS: 77080

== ENCOUNTER → 2023-07-28 10:18 | Outpatient (BNVA) | payer MEDICARE, MEDICAID, SELFPAY | PROVIDERS: PCP Family Medicine; Visit Provider Family Medicine | DX: G89.29 Other chronic pain (principal); M25.551 Pain in right hip | CPT/HCPCS: 73502 ==

== ENCOUNTER → 2023-08-05 11:52 | Outpatient (BNVA) | payer MEDICARE, MEDICAID, SELFPAY | PROVIDERS: PCP Family Medicine; Visit Provider Registered Nurse Neonatal Intensive Care | DX: J02.9 Acute pharyngitis, unspecified (principal); R09.82 Postnasal drip | CPT/HCPCS: 87880 ==

== ENCOUNTER → 2023-08-18 09:58 | Outpatient (BNVA) | payer MEDICARE, MEDICAID, SELFPAY | PROVIDERS: PCP Family Medicine; Visit Provider Family Medicine | DX: E03.8 Other specified hypothyroidism (principal); E55.9 Vitamin D deficiency, unspecified; E78.2 Mixed hyperlipidemia; R73.03 Prediabetes; E78.00 Pure hypercholesterolemia, unspecified | CPT/HCPCS: 80053; 80061; 82306; 83036; 84443; 85025 ==

== ENCOUNTER 2023-08-25 14:07 | Outpatient (CLI) | payer MEDICARE, MEDICAID, SELFPAY ==
--- NOTE | 2023-08-25 14:18 | MM_ITS ---
WS: [id number] BILATERAL 3D TOMOSYNTHESIS DIGITAL SCREENING MAMMOGRAPHY WITH CAD CLINICAL INFORMATION: SCREENING HISTORY: Screening mammogram. No current complaints. COMPARISON: 2021 TECHNIQUE: Bilateral CC and MLO views. FINDINGS: Scattered fibroglandular densities bilaterally. Lucent centered calcification LEFT breast. Numerous n ew punctate and clustered calcifications LEFT axillary tail. Recommend further evaluation with LEFT d iagnostic mammography with spot magnification views. RIGHT breast is unremarkable. IMPRESSION: MM/[place] [id number] BI-RADS: 0-Incomplete: Need additional imaging evaluation FOLLOW UP: Need Additional Imaging Recommend LEFT breast diagnostic mammography with spot magnification views of t he new axillary tail calcifications
== END 2023-08-25 14:08 | disposition home or self-care (01) ==
LOC: RAD 14:07
PROVIDERS: PCP Family Medicine; Visit Provider Family Medicine
DX: Z12.31 Encounter for screening mammogram for malignant neoplasm of breast (principal)
CPT/HCPCS: 77063; 77067

== ENCOUNTER 2023-08-25 14:08 | Outpatient (CLI) | payer MEDICARE, MEDICAID, SELFPAY ==
--- NOTE | 2023-08-25 14:13 | CT_ITS ---
WS: [id number] CT NECK TECHNIQUE: Contrast-enhanced CT of the neck with coronal and sagittal reformatted images. CLINICAL INFORMATION: OTALGIA, LEFT EAR COMPARISON: CT 12/26/2020 DLP: 153.[address] scans at [facility] use at least one of these dose optimization techniques: automated e xposure control; mA and/or kV adjustment per patient size (includes targeted exams where dose is matc hed to clinical indication); or iterative reconstruction. FINDINGS: Mild mucosal thickening in the mastoid air cells. Mild thickening of the LEFT tympanic memb benita. Middle ears are well aerated. Normal posterior nasopharynx. Normal parapharyngeal fat. Parotid glands are normal. Normal RIGHT submandibular gland. Atrophic LEFT submandibular gland. Tongue base a ppears normal. No evidence of supraglottic or glottic mass. Normal subglottic airway. Enhancing RIGHT submandibular lymph node measuring 7 mm in short axis dimension more prominent compar ed to 2020. Additional enhancing RIGHT level 2 lymph node anterior to the jugular vein measures 6 mm in short axis dimension also increased in size compared to 202. Additional enhancing RIGHT level 2B lymph node posterior to the sternocleidomastoid measuring 8.5 x 6.5 mm also increased in size compare d to previous. A few slightly prominent RIGHT level 3 posterior triangle lymph nodes. Additional prominent enhancing RIGHT sublingual lymph node measuring 7 x 5 mm progressed compared to previous. Lung apices are well aerated. Moderate spondylitic changes cervical spine with straightening of the n ormal cervical lordosis.Prior postoperative changes LEFT thyroidectomy. IMPRESSION: 1. Progressed enhancing RIGHT submandibular, level 2, and level 2B lymph nodes progressed compared t o 2020. These remain subcentimeter in size and remain indeterminate. Consider further evaluation with PET/CT for recurrence. Recurrent disease not excluded. 2. Otherwise no evidence of supraglottic or glottic mass. Normal subglottic airway. 3. No other suspicious findings.
[2023-08-25] MEDS: iohexol 350 mg/mL 500 mL Btl (per mL) IV (15:25)
== END 2023-08-25 14:09 | disposition home or self-care (01) ==
LOC: RAD 14:08
PROVIDERS: PCP Family Medicine; Visit Provider Specialist
DX: H92.02 Otalgia, left ear (principal)
CPT/HCPCS: 70491; Q9967

== ENCOUNTER → 2023-10-08 09:44 | Outpatient (BNVA) | payer MEDICARE, MEDICAID, SELFPAY ==
[2023-10-07 12:41] VITALS: BP 108/66; BMI 35.1
== END ==
PROVIDERS: PCP Family Medicine; Visit Provider Nurse Practitioner Family
DX: L73.2 Hidradenitis suppurativa (principal); L58.9 Radiodermatitis, unspecified; L57.0 Actinic keratosis
CPT/HCPCS: 17000; 99214

== ENCOUNTER 2023-10-18 13:47 | Outpatient (CLI) | payer MEDICARE, MEDICAID, SELFPAY ==
[2023-10-07 12:41] VITALS: BP 108/66; BMI 35.1
--- NOTE | 2023-10-18 13:30 | MM_ITS ---
WS: [id number] LEFT 3D TOMOSYNTHESIS DIGITAL MAMMOGRAPHY WITH CAD CLINICAL INFORMATION: R92.8 - Other abnormal and inconclusive findings on diagn... HISTORY: Additional views COMPARISON: 08/25/2023 TECHNIQUE: 3 views of the left breast were obtained. FINDINGS: Scattered fibroglandular densities of the left breast. Spot magnification views demonstrate punctate and lucent centered loosely clustered calcifications. These are indeterminant but probably benign. Re commend 6-month follow-up to assess change. No other significant changes. IMPRESSION: MM/[place] [id number] BI-RADS: 3-Probably Benign FOLLOW UP: 6 Month Follow-up Recommend 6-month follow-up LEFT breast diagnostic mammography with spot modifi cation views of the calcifications.
== END 2023-10-18 13:48 | disposition home or self-care (01) ==
LOC: RAD 13:47
PROVIDERS: PCP Family Medicine; Visit Provider Nurse Practitioner Family
DX: R92.8 Other abnormal and inconclusive findings on diagnostic imaging of breast (principal)
CPT/HCPCS: 77061; G0279

== ENCOUNTER → 2023-11-10 16:00 | Outpatient (BNVA) | payer MEDICARE, MEDICAID, SELFPAY ==
[2023-10-07 12:41] VITALS: BP 108/66; BMI 35.1
== END ==
PROVIDERS: PCP Nurse Practitioner Family; Visit Provider Nurse Practitioner Family
DX: E03.8 Other specified hypothyroidism (principal)
CPT/HCPCS: 80053; 84439; 84443; 84481; 85025

== ENCOUNTER 2023-11-16 13:19 | Outpatient (CLI) | payer MEDICARE, SELFPAY ==
[2023-10-07 12:41] VITALS: BP 108/66; BMI 35.1
--- NOTE | 2023-11-16 13:23 | CT_ITS ---
WS: [id number] CT chest w con* [id number] HISTORY: SOLITARY PULMONARY NODULE TECHNIQUE: Axial imaging performed through the thorax. Coronal and sagittal reformats are submitted. All CT scans at [facility] use at least one of these dose optimization techniques: automated exposure control; mA and/or kV adjustment per patient size (includes targeted exams where dose is mat ched to clinical indication); or iterative reconstruction. CONTRAST: Omnipaque 350; 100 mL IV. DLP: 462.04 mGy.cm COMPARISON: 06/15/2013 Lungs and central airway: Pulmonary hyperexpansion with centrilobular emphysema. There is a new pleur al opacification of the LEFT upper lobe. Subpleural nodule measures 8 x 6 mm. No additional nodules o r masses. No pneumonia. Pleura: Normal. No pleural effusion. Heart and pericardium: Normal size heart with no pericardial effusion. Mediastinum and joseph: No mediastinum or hilar adenopathy. Vessels: Atherosclerosis aorta. No aneurysm. Normal sized pulmonary artery. Chest wall and lower neck: No soft tissue masses. Upper abdomen: Hepatic steatosis. Normal portal vein. 4 mm low-attenuation nodule in the superior pos terior RIGHT lobe. Osseous structures: No destructive process. IMPRESSION: 1. Single subpleural 8 x 6 mm nodule LEFT upper lobe. New since 06/15/2013. Recommend follow-up chest CT imaging in 3 months. Early metastatic nodule is not excluded. 2. Centrilobular emphysema. 3. No mediastinal or hilar adenopathy. 4. Too small to characterize low-attenuation nodule RIGHT lobe of the liver.
[2023-11-16] MEDS: iohexol 350 mg/mL 500 mL Btl (per mL) IV (13:55)
== END 2023-11-16 13:20 | disposition home or self-care (01) ==
LOC: RAD 13:19
PROVIDERS: PCP Nurse Practitioner Family; Visit Provider Specialist
DX: G56.01 Carpal tunnel syndrome, right upper limb (principal); M18.12 Unilateral primary osteoarthritis of first carpometacarpal joint, left hand
CPT/HCPCS: 36415; 71260; 80053; 85025; 99214; Q9967

== ENCOUNTER 2023-11-24 06:00 | Outpatient (RCR) | payer MEDICARE, MEDICAID, SELFPAY ==
[2023-10-07 12:41] VITALS: BP 108/66; BMI 35.1
== END 2023-12-09 23:59 | disposition home or self-care (01) ==
LOC: TOT 06:00
PROVIDERS: Visit Provider Nurse Practitioner Family
DX: M26.622 Arthralgia of left temporomandibular joint (principal)
CPT/HCPCS: 97110; 97112; 97124; 97165

== ENCOUNTER 2023-12-15 11:13 | Day surgery (SDC) | payer MEDICARE, MEDICAID, SELFPAY ==
[2023-10-07 12:41] VITALS: BP 108/66; BMI 35.1
[2023-12-15] VITALS (7 sets, daily range): BP systolic 92–125; BP diastolic 43–73; PULSE 71–89; RESP 16–18; TEMP 36.1–36.6; O2SAT 92–97; BMI 35.6
[2023-12-15] MEDS: scopolamine 1.5 Patch 1 PATCH TRANSDERMA (12:19)
[2023-12-15] MEDS: acetaminophen 1,000 MG/100 ML PIGGYBACK 400 MG IV (12:19)
[2023-12-15] MEDS: ketorolac 30 mg/mL INJ IVP (12:19)
[2023-12-15] MEDS: sodium chloride 0.9% 1,000 ML 30 ML IV (12:25)
--- NOTE | 2023-12-15 13:21 | ANES.PREANE2 ---
Pre-Anesthetic Assessment Height/Weight: Height 1.57 m Weight 88.451 kg Temp Pulse Resp BP Pulse Ox O2 Del Method 97.9 F 89 18 125/73 93 Room Air 12/15/23 11:53 12/15/23 11:53 12/15/23 11:53 12/15/23 11:53 12/15/23 11:53 12/15/23 11:56 Operation Date: 12/15/23 12:35 Proposed Procedures p Carpal Tunnel Release(Right) - Franklin Hodges DO s Cortisone Injection/LEFT THUMB BASAL JOINT CORTISONE INJECTION(Left) - Franklin Hodges DO Last intake: Intake Last Liquid Date 12/14/23 Last Liquid Time 21:00 Last Solid Date 12/14/23 Last Solid Time 21:00 Social No alcohol and No tobacco Exam alert, oriented x 3, clear to auscultation bilaterally and regular rate & rhythm Airway Mallampati: Class II Metabolic Thyroid Disease Neuropsych Bipolar Anesthetic Plan ASA status: 3 Anesthesia: MAC Medications/Allergies Home Medications Medication Instructions Recorded Confirmed Last Taken Type clindamycin phosphate 1 % lotion 1 applic topical BID #60 mL 05/30/22 12/14/23 12/13/23 Rx guaifenesin 600 mg tablet, 600 mg PO BID PRN congestion #60 06/19/22 12/14/23 12/13/23 Rx extended release 12 hr (Mucinex) tabs Disposable nebulizer circuit with #1 ea 07/14/22 11/23/23 Unknown Rx mask budesonide-formoterol HFA 80 2 puff inhalation BID #10.2 grams 08/11/23 12/14/23 12/14/23 Rx mcg-4.5 mcg/actuation aerosol inhaler (Symbicort) cetirizine 10 mg tablet (Zyrtec) 10 mg PO DAILY #90 tabs 08/11/23 12/14/23 12/15/23 Rx estradiol 0.01% (0.1 mg/gram) 2 g vaginal .2 times a week #42.5 08/11/23 12/14/23 12/11/23 Rx vaginal cream grams gabapentin 300 mg capsule 300 mg PO BID #60 caps 08/11/23 12/14/23 12/14/23 Rx ibandronate 150 mg tablet 150 mg PO .monthly #1 tab 08/11/23 12/14/23 12/07/23 Rx montelukast 10 mg tablet 10 mg PO DAILY #30 tabs 08/11/23 12/14/23 12/13/23 Rx (Singulair) rosuvastatin 20 mg tablet (Crestor) 20 mg PO DAILY #30 tabs 08/11/23 12/14/23 12/13/23 Rx sucralfate 1 gram tablet (Carafate) 1 g PO BID #60 tabs 08/11/23 12/14/23 12/14/23 Rx pantoprazole 40 mg tablet,delayed 40 mg PO DAILY #30 tabs 10/08/23 12/14/23 12/13/23 Rx release (Protonix) ergocalciferol (vitamin D2) 1,250 1,250 mcg PO .weekly #4 caps 10/14/23 12/14/23 12/11/23 Rx mcg (50,000 unit) capsule albuterol sulfate 90 mcg/actuation 2 puff inhalation QID PRN 10/28/23 12/14/23 12/14/23 Rx aerosol inhaler (Ventolin HFA) shortness of breath or wheezing #8.5 grams fluticasone propionate 50 1 spray intranasal BID 11/10/23 12/14/23 12/14/23 History mcg/actuation nasal spray,suspension levothyroxine 50 mcg tablet 50 mcg PO DAILY #90 tabs 11/19/23 12/14/23 12/14/23 Rx lorazepam 0.5 mg tablet 0.5 mg PO BID PRN anxiety #60 tabs 11/19/23 12/14/23 12/15/23 Rx duloxetine 60 mg capsule,delayed 60 mg PO BID #60 caps 11/23/23 12/14/23 12/14/23 Rx release valacyclovir 500 mg tablet 500 mg PO BID #60 tabs 12/03/23 12/14/23 12/14/23 Rx (Valtrex) oxybutynin chloride 5 mg 5 mg PO DAILY #30 tabs 12/07/23 12/14/23 12/13/23 Rx tablet,extended release 24 hr albuterol sulfate 2.5 mg/3 mL 2.5 mg inhalation Q6H PRN 12/14/23 12/14/23 Unknown History (0.083 %) solution for nebulization Shortness Of Breath aripiprazole 5 mg tablet (Abilify) 5 mg PO DAILY 12/14/23 12/14/23 12/13/23 History clobetasol 0.05 % topical gel 1 applic topical DAILY 12/14/23 12/14/23 12/14/23 History triamcinolone acetonide 0.1 % 1 applic topical BID 12/14/23 12/14/23 12/14/23 History topical cream Allergies Allergy/AdvReac Type Severity Reaction Status Date / Time cyclobenzaprine Allergy rapid Verified 12/14/23 12:17 [From Flexeril] heart beat erythromycin base Allergy vomiting Verified 12/14/23 12:17 iron Allergy ADR-Diarrhe Verified 12/14/23 12:17 a nitrofurantoin Allergy ADR-Dizzine Verified 12/14/23 12:17 [From Macrobid] ss oxcarbazepine Allergy ADR-Dizzine Verified 12/14/23 12:17 [From Trileptal] ss Sulfa (Sulfonamide Allergy ALGY-Hives Verified 12/14/23 12:17 Antibiotics) topiramate [From Topamax] Allergy felt like Verified 12/14/23 12:17 feet were burning off Current Medications Generic Name Dose Route Start Last Admin Trade Name Freq PRN Reason Stop Dose Admin Sodium Chloride 1,000 mls @ 30 mls/hr 12/15/23 12:12 12/15/23 12:25 Sodium Chloride 0.9% IV 12/16/23 12:11 30 mls/hr .Q24H RAYMUNDO Administration PFSH Anesthesia Medical History Major depressive disorder, recurrent episode with anxious distress Family conflict Anxiety state, unspecified Major depressive disorder in partial remission Acid reflux History of eustachian tube dysfunction History of radiation therapy Psychiatric care Major depressive disorder in partial remission Mixed incontinence urge and stress Obstructive sleep apnea Metabolic syndrome Vitamin D deficiency Herpes simplex Spondylolisthesis, cervical region Mixed hyperlipidemia Seasonal allergic rhinitis due to pollen FLIP (stress urinary incontinence, female) Major depressive disorder, recurrent episode with anxious distress Lumbosacral spondylosis with radiculopathy Insomnia, persistent Adult onset hypothyroidism Osteoporosis, post-menopausal Surgical History History of bladder surgery device placed with wires that control the bladder History of bilateral tubal ligation History of salpingectomy History of dental surgery History of D&C History of left oophorectomy History of thyroid surgery History of colonoscopy with polypectomy History of cancer tonsil Family History Father Hypertension Mother No problems noted. Sister Diabetes Hyperlipidemia Brother Cancer bone cancer Family/Other Breast cancer Maternal Aunt Denies family history of CAD (coronary artery disease) Clotting disorder Chronic kidney disease (CKD) Bleeding disorder Thyroid disease Stroke Social History Smoking and tobacco/nicotine status: former use of tobacco/nicotine Quit status (tobacco/nicotine): has quit using Year quit tobacco: 2013 Second hand smoke exposure: No Alcohol intake: never Substance/Drug Use: never Adopted: No Caregiver/support person: No Lives independently: Yes Household members: spouse Housing: House Marital status: Number of children: 2 service: No Current occupational status: unemployed Do you think of yourself as: Straight/Heterosexual Current gender identity: Female Female Reproductive History Para: 2 Data Anesthesia Cardiac Studies: No Data to Display
[2023-12-15] MEDS: midazolam 1 mg/mL INJ 2 mL 2 MG IVP (15:38)
--- NOTE | 2023-12-15 15:43 | W.PM.OPSUD ---
Surgery/Procedure H&P Update DATE OF PROCEDURE: December 15, 2023 DATE H&P PERFORMED: 11/16/23 H&P UPDATE INFORMATION: I have reviewed H&P completed within last 30 days, I have examined patient prior to procedure and No changes to prior documentation PREOP DIAGNOSIS: Right carpal tunnel syndrome recurrent, left thumb basal joint arthritis PRIMARY INDICATION FOR PROCEDURE: Right carpal tunnel syndrome recurrent, left thumb basal joint arthritis PLANNED PROCEDURE: Operation Date: 12/15/23 12:35 Proposed Procedures p Carpal Tunnel Release(Right) - Franklin Hodges DO s Cortisone Injection/LEFT THUMB BASAL JOINT CORTISONE INJECTION(Left) - Franklin Hodges DO
[2023-12-15] MEDS: ceFAZolin 2,000 MG in sodium chloride 0.9% (plus) 50 ML 100 MG IV (18:38)
[2023-12-15] MEDS: ROPivacaine 0.5% SDV 30 mL 150 MG INJECTION (18:48)
[2023-12-15] MEDS: lidocaine-epi 1% 20 mL INJ INJECTION (18:48)
[2023-12-15] MEDS: lidocaine 1% INJ 10 mL (per mL) XX (19:04)
[2023-12-15] MEDS: triamcinolone 40 mg/mL SDV 10 MG INJECTION (19:04)
--- NOTE | 2023-12-15 19:15 | W.PM.BPON ---
Date of Procedure: [December 15, 2023] Surgeon: [Dr. Hodges DO] Household Refrigeration Mechanic(s): [Thanh Hodges PA-C] Procedure(s) performed: [Right carpal tunnel release revision Median nerve neurolysis Left thumb basal joint cortisone injection] Findings of the procedure(s): [Right carpal tunnel syndrome] Estimated blood loss: [5 ml] Specimen(s) removed: [n/a] Post-operative diagnosis: [Right carpal tunnel syndrome]
--- NOTE | 2023-12-15 19:17 | PM.PACU ---
PACU note Narrative: Patient is a 68-year-old female just underwent a right carpal tunnel release and left basal joint cortisone injection. Patient transferred to PACU in stable condition. Pain is well controlled. Dressing on hand is dry and in place. Patient's fingers are warm and well-perfused. Patient can wiggle fingers. normal cap refill under 2 seconds. Patient has normal elbow range of motion. Unable to assess sensation due to residual localized anesthetic. Exam: awake Disposition: discharged
--- NOTE | 2023-12-15 19:24 | P.OP_ITS ---
Operative Report Date of procedure: December 15, 2023 Surgeon: Franklin Hodges DO Contact Lens Assistant: Thanh Hodges PA-C: PA was necessary for assistance in this case with hand positioning to execute the procedure, retraction and protection of neurovascular structures as well as to assist with wound closure and dressing application. Procedure: Preoperative diagnosis: Recurrent right carpal tunnel syndrome Left thumb basal joint arthritis Post-op diagnosis: Same Procedure done: 1.? Revision right carpal tunnel?release 2. Right median nerve neurolysis 3. Left thumb basal joint cortisone injection Surgeon: Franklin Hodges DO Anesthesia: MAC (Local) Estimated blood loss: [5]mL Tourniquet time [9]minutes IV fluids: See anesthesia?record Complications: None Findings: See operative?report narrative Condition: stable Disposition: same day Brief History: Patient is a pleasant [68]year-old [female] with?recurrent right carpal tunnel syndrome.? Patient has been worked up in the outpatient setting findings and physical examination consistent with this.? We detailed out patient's?risk benefits complication alternatives with surgical and nonsurgical treatment o ptions. Through shared decision making, patient agrees to proceed with surgical intervention of the right carpal tunnel?release revision.? She also has left thumb basal joint arthritis and she like to have this injected while she is asleep. Will proceed with left thumb basal joint cortisone injection while performing right carpal tunnel release revision. Patient understands and agrees with current plan.? All questions answered.? Patient elects to proceed with surgical intervention. Procedure: Patient seen and evaluated in the preoperative holding area.? Consent was?reviewed and signed with patient.? Correct extremity was marked.? Patient was seen evaluated by the anesthesia department once cleared for surgery was brought back to the operative suite.? Patient was kept on [facility] in supine position all bony prominences were well-padded patient properly secured to the bed.??Right upper extremity was then placed onto an armboard.? A nonsterile tourniquet was applied to the?RIght upper arm.? Patient underwent anesthesia per the anesthesia department.? Patient's?Right upper extremity was then prepped and draped in standard orthopedic fashion.? Final timeout performed.? Patient?received appropriate preoperative antibiotics. Under sterile aseptic technique patient?received local anesthesia over the preplanned carpal tunnel incision site. Esmarch was used to exsanguinate the?Right upper extremity and tourniquet was insufflated to 250 mmHg. A Extensive open?Right carpal tunnel incision was made.? Starting distally at Resendiz's cardinal line in line with the fourth?ray extending proximally Shabnam past the wrist crease and into the distal forearm. Sharp scalpel incision was made through skin and subcutaneous tissue.? Self-retaining?retractor was placed and the palmar fascia was identified.? This was then split longitudinally and direct visualization of the recurrent transverse carpal ligament was then made.? I then utilizing scalpel feathered through the transverse carpal ligament until I entered the floor of the transverse carpal tunnel ligament into the carpal tunnel.? Next I switched to dissection scissors and completed my?release of the transverse carpal ligament distally with care to protect the?recurrent motor branch.? I completely?released into the palmar fat and until no entrapment was noted distally.? Care was made to protect the superficial palmar arch during my distal dissection.?? Next I made an incision proximally. Once I had identified the median nerve distally I placed a Bunkie underneath this and continued to dissect through the transverse carpal ligament proximally. Once the entirety of the carpal tunnel was released and open it was noted there was significant tethering of patient's forearm fascia as well as palmaris longus tendon as result given the tethering of the palmar fascia as well as the median antebrachial fascia I then utilized Littler dissection scissors to excise this into the distal forearm to where there was no further areas of entrapment this completely released the median nerve in this region. This was all performed under direct loupe magnification and patient was found to have a complete laxity and fully exposed and decompressed nerve from the Resendiz's cardinal line to the distal third of the forearm with no areas of entrapment or tethering. There was hourglass shape of the median nerve showing its compression, The rest of the contents of the carpal tunnel were healthy and intact. No masses were noted.? Tendons appeared healthy.? Wound was then thoroughly irrigated.? Tourniquet deflated.? Hemostasis satisfactory with bipolar electrocautery.? I then closed the incision with interrupted nylon stitches.? Xeroform 4 x 4's and a bulky soft dressing was applied.? Volar splint applied given incision went across the wrist crease. Next I then subsequently proceeded with left thumb basal joint cortisone injection. 10 of Kenalog and lidocaine was subsequently drawn and I then subs equently palpated the left thumb basal joint, this was prepped in standard orthopedic fashion and then subsequent underwent left thumb basal joint cortisone injection under sterile aseptic technique without any issues. Band- Aid applied. Patient was then awakened from anesthesia and taken to PACU in stable condition.? Patient tolerated procedure without complications. Disposition: Patient taken to PACU in stable condition?recovering well.? Dressing clean dry and intact.? Patient will?receive appropriate discharge instructions as well as pain medication postoperatively.? Patient to follow-up with me in the office in 2 weeks.? They understand they may be nonweightbearing to the?right hand.? Patient should keep incision clean dry and intact.? Patient understands if any questions or concerns may contact the office.
--- NOTE | 2023-12-15 21:02 | ANE.PACU2 ---
Inpatient post-anesthesia follow up: Vital signs: Temperature 97 F Pulse Rate 72 Respiratory Rate 18 Blood Pressure 104/62 Pulse Oximetry 97 Oxygen Delivery Me thod Room Air Oxygen Flow Rate Fraction of Inspir ed Oxygen Hydration adequate: Yes Nausea and vomiting: No Mental status: Baseline Additional Comments: no apparent anesthetic complications noted
== END 2023-12-15 19:53 | disposition home or self-care (01) ==
PROVIDERS: PCP Nurse Practitioner Family; Visit Provider Student in an Organized Health Care Education/Training Program
PROC: (CPT 64721; principal; 2023-12-15 12:35)
PROC: (CPT 96372; 2023-12-15 12:35)
DX: G56.01 Carpal tunnel syndrome, right upper limb (principal); M19.042 Primary osteoarthritis, left hand; G47.33 Obstructive sleep apnea (adult) (pediatric); E78.2 Mixed hyperlipidemia; M81.0 Age-related osteoporosis without current pathological fracture; E03.9 Hypothyroidism, unspecified; Z87.891 Personal history of nicotine dependence
CPT/HCPCS: 20600; 64721; J0131; J0690; J1885; J2250; J2704; J2795; J3010; J3301; J7030

== ENCOUNTER → 2023-12-30 14:13 | Outpatient (BNVA) | payer MEDICARE, MEDICAID, SELFPAY ==
[2023-10-07 12:41] VITALS: BP 108/66; BMI 35.1
== END ==
PROVIDERS: PCP Nurse Practitioner Family; Visit Provider Student in an Organized Health Care Education/Training Program
DX: G56.01 Carpal tunnel syndrome, right upper limb (principal); M18.12 Unilateral primary osteoarthritis of first carpometacarpal joint, left hand
CPT/HCPCS: 99024; 99213

== ENCOUNTER 2024-01-04 12:14 | Outpatient (RCR) | payer MEDICARE, MEDICAID, SELFPAY ==
[2023-10-07 12:41] VITALS: BP 108/66; BMI 35.1
== END 2024-01-09 23:59 | disposition home or self-care (01) ==
LOC: SOT 12:14
PROVIDERS: PCP Nurse Practitioner Family; Visit Provider Student in an Organized Health Care Education/Training Program
DX: Z47.89 Encounter for other orthopedic aftercare (principal)
CPT/HCPCS: 97022; 97110; 97165; 97530

== ENCOUNTER 2024-01-10 06:00 | Outpatient (RCR) | payer MEDICARE, MEDICAID, SELFPAY ==
[2023-10-07 12:41] VITALS: BP 108/66; BMI 35.1
== END 2024-02-08 23:59 | disposition home or self-care (01) ==
LOC: SOT 06:00
PROVIDERS: PCP Nurse Practitioner Family; Visit Provider Student in an Organized Health Care Education/Training Program
DX: Z47.89 Encounter for other orthopedic aftercare (principal)
CPT/HCPCS: 97022; 97110; 97140

== ENCOUNTER → 2024-02-02 08:48 | Outpatient (BNVA) | payer MEDICARE, MEDICAID, SELFPAY ==
[2023-10-07 12:41] VITALS: BP 108/66; BMI 35.1
== END ==
PROVIDERS: PCP Nurse Practitioner Family; Visit Provider Nurse Practitioner Family
DX: E78.2 Mixed hyperlipidemia (principal); E03.8 Other specified hypothyroidism; E11.65 Type 2 diabetes mellitus with hyperglycemia; J44.9 Chronic obstructive pulmonary disease, unspecified
CPT/HCPCS: 80053; 80061; 83036; 84443; 85025

== ENCOUNTER → 2024-04-25 15:15 | Outpatient (BNVA) | payer MEDICARE, MEDICAID, OTHER, SELFPAY ==
[2024-03-27 09:34] VITALS: BP 108/66; BMI 35.1
== END ==
PROVIDERS: PCP Nurse Practitioner Family; Visit Provider Dermatology
DX: L73.2 Hidradenitis suppurativa (principal); L58.9 Radiodermatitis, unspecified; L30.4 Erythema intertrigo
CPT/HCPCS: 99214

== ENCOUNTER 2024-06-13 12:53 | Outpatient (RCR) | payer MEDICARE, MEDICAID, SELFPAY ==
[2024-03-27 09:34] VITALS: BP 108/66; BMI 35.1
== END 2024-07-10 23:59 | disposition home or self-care (01) ==
LOC: SOT 12:53
PROVIDERS: PCP Nurse Practitioner Family; Visit Provider Nurse Practitioner Family
DX: M65.30 Trigger finger, unspecified finger (principal)
CPT/HCPCS: 97110; 97166; 97530

== ENCOUNTER → 2024-06-14 15:16 | Outpatient (BNVA) | payer MEDICARE, MEDICAID, SELFPAY ==
[2024-03-27 09:34] VITALS: BP 108/66; BMI 35.1
== END ==
PROVIDERS: PCP Nurse Practitioner Family; Visit Provider Family Medicine
DX: R30.0 Dysuria (principal)
CPT/HCPCS: 81000

== ENCOUNTER 2024-06-20 14:25 | Outpatient (CLI) | payer MEDICARE, MEDICAID, SELFPAY ==
[2023-10-07 12:41] VITALS: BP 108/66; BMI 35.1
[2024-03-27 09:34] VITALS: BP 108/66; BMI 35.1
== END 2024-06-20 14:26 | disposition home or self-care (01) ==
LOC: SLEEP 14:27
PROVIDERS: PCP Nurse Practitioner Family; Visit Provider Nurse Practitioner Family
DX: G47.33 Obstructive sleep apnea (adult) (pediatric) (principal)
CPT/HCPCS: G0399

== ENCOUNTER → 2024-06-30 10:28 | Outpatient (BNVA) | payer MEDICARE, MEDICAID, SELFPAY ==
[2024-06-27 13:11] VITALS: BP 108/66; BMI 35.1
== END ==
PROVIDERS: PCP Nurse Practitioner Family; Referring Provider Nurse Practitioner Family; Visit Provider Student in an Organized Health Care Education/Training Program
DX: Z12.11 Encounter for screening for malignant neoplasm of colon (principal)
CPT/HCPCS: 99024; 99204

== ENCOUNTER 2024-07-25 15:53 | Outpatient (CLI) | payer MEDICARE, MEDICAID, SELFPAY ==
[2024-06-27 13:11] VITALS: BP 108/66; BMI 35.1
--- NOTE | 2024-07-25 16:00 | US_ITS ---
WS: [id number] THYROID ULTRASOUND HISTORY: E03.8 - Other specified hypothyroidism COMPARISON: 08/18/2022 Right lobe: 0.8 cm x 1.4 cm x 3.7 cm (w x ap x l). Volume: 2.0 cm3. Normal size and echotexture. No significant are dominant nodules are present. Left lobe: Status post LEFT thyroidectomy. No recurrent mass at the thyroid bed. Isthmus: 0.2 cm. US/US thyroid 60121 IMPRESSION: 1. Status post LEFT thyroidectomy. No recurrent mass in the thyroid bed. 2. Normal RIGHT thyroid.
== END 2024-07-25 15:54 | disposition home or self-care (01) ==
LOC: RAD 15:54
PROVIDERS: PCP Nurse Practitioner Family; Visit Provider Nurse Practitioner Family
DX: E03.8 Other specified hypothyroidism (principal); Z90.89 Acquired absence of other organs
CPT/HCPCS: 76536

== ENCOUNTER 2024-08-21 06:36 | Day surgery (SDC) | payer MEDICARE, MEDICAID, SELFPAY ==
[2024-06-27 13:11] VITALS: BP 108/66; BMI 35.1
[2024-08-21 06:56] VITALS: BP 130/70; PULSE 99; RESP 18; TEMP 36.2; O2SAT 95; BMI 38.4
[2024-08-21] MEDS: sodium chloride 0.9% 1,000 ML 30 ML IV (07:06)
--- NOTE | 2024-08-21 07:30 | ANES.PREANE2 ---
Pre-Anesthetic Assessment Height/Weight: Height 1.57 m Weight 95.254 kg Temp Pulse Resp BP Pulse Ox O2 Del Method 97.2 F L 99 18 130/70 95 Room Air 08/21/24 06:56 08/21/24 06:56 08/21/24 06:56 08/21/24 06:56 08/21/24 06:56 08/21/24 06:56 Preop Diagnosis: HO colon polyps Operation Date: 08/21/24 07:45 Proposed Procedures p Colonoscopy 71950, G0105, z12.11, Z86.010(Not Applicable) - Rj Schuster MD Familial anesthetic complications: none Was Beta Erin taken within 24 hours: N/A Was Clonidine taken within 24 hours: N/A (took lorazepam this AM) Last intake: Intake Last Liquid Date 08/20/24 Last Liquid Time 22:00 Last Solid Date 08/19/24 Last Solid Time 21:00 Social No alcohol and No tobacco (quit 10 years ago) Exam alert and oriented x 3 Airway Submandibular: within normal limits Cervical ROM: within normal limits Mallampati: Class II Dentition: false History/ROS No significant history except as noted Pulmonary Chronic Obstructive Pulmonary Disease, Exertional Dyspnea, Sleep Apnea and Shortness of Breath CV/HEM None reported None reported Hepatic None reported GI None reported Metabolic Hyperlipidemia, Morbid Obesity and Thyroid Disease Musc/skel Lower Back Pain Neuropsych Anxiety and Bipolar Anesthetic Plan ASA status: 3 Anesthesia: Anesthesia Evaluation and MAC Medications/Allergies Home Medications Medication Instructions Recorded Confirmed Last Taken Type clindamycin phosphate 1 % lotion 1 applic topical BID #60 mL 05/30/22 08/16/24 08/20/24 Rx Disposable nebulizer circuit with #1 ea 07/14/22 08/15/24 Unknown Rx mask cetirizine 10 mg tablet (Zyrtec) 10 mg PO DAILY #90 tabs 08/11/23 08/16/24 08/20/24 Rx albuterol sulfate 2.5 mg/3 mL 2.5 mg inhalation Q6H PRN 12/14/23 08/16/24 Unknown History (0.083 %) solution for nebulization Shortness Of Breath mupirocin 2 % topical ointment 1 applic topical BID #22 grams 12/29/23 08/16/24 08/20/24 Rx nystatin 100,000 unit/mL oral 5 ml buccal TID 7 days #200 mL 12/29/23 08/16/24 08/20/24 Rx suspension nebulizer tubing and mask #1 ea 01/14/24 08/15/24 Unknown Rx azelastine 137 mcg-fluticasone 50 1 spray intranasal BID 01/25/24 08/16/24 08/20/24 History mcg/spray nasal spray (Dymista) clobetasol 0.05 % topical gel 1 applic topical DAILY 14 days #60 02/04/24 08/16/24 08/20/24 Rx grams cords and hoses for cpap machine #1 ea 03/16/24 08/15/24 Unknown Rx budesonide-formoterol HFA 80 2 puff inhalation BID #10.2 grams 03/17/24 08/16/24 08/20/24 Rx mcg-4.5 mcg/actuation aerosol inhaler (Symbicort) diclofenac sodium 75 mg 75 mg PO BID PRN pain #60 tabs 05/16/24 08/16/24 08/20/24 Rx tablet,delayed release levothyroxine 75 mcg tablet 75 mcg PO DAILY #30 tabs 05/29/24 08/16/24 08/20/24 Rx clotrimazole 1 % topical cream 1 applic topical BID 14 days #45 06/06/24 08/16/24 08/20/24 Rx grams ketoconazole 2 % topical cream 1 applic topical BID 14 days #60 06/06/24 08/16/24 08/20/24 Rx grams fluconazole 150 mg tablet 150 mg PO DAILY #3 tabs 06/14/24 08/16/24 08/20/24 Rx nystatin 100,000 unit/gram topical 1 applic topical BID #30 grams 06/14/24 08/16/24 08/20/24 Rx cream aripiprazole 5 mg tablet 5 mg PO DAILY #30 tabs 06/26/24 08/16/24 08/20/24 Rx auto titrating cpap at 6-14cm with #1 ea 06/26/24 08/15/24 Unknown Rx nose mask docosahexaenoic acid 200 mg 200 mg PO DAILY #100 caps 06/26/24 08/16/24 08/20/24 Rx capsule ( DHA) duloxetine 60 mg capsule,delayed 60 mg PO BID #60 caps 06/26/24 08/16/24 08/15/24 Rx release estradiol 0.01% (0.1 mg/gram) 2 g vaginal .2 times a week #42.5 06/26/24 08/16/24 08/14/24 Rx vaginal cream grams gabapentin 300 mg capsule 300 mg PO BID #60 caps 06/26/24 08/16/24 08/20/24 Rx lorazepam 1 mg tablet 1 mg PO BID PRN anxiety #60 tabs 06/26/24 08/16/24 08/21/24 Rx albuterol sulfate 90 mcg/actuation 2 puff inhalation QID PRN 08/16/24 08/16/24 08/16/24 History aerosol inhaler Shortness Of Breath Or Wheezing ergocalciferol (vitamin D2) 1,250 1,250 mcg PO .WEEKLY 08/16/24 08/16/24 08/11/24 History mcg (50,000 unit) capsule eszopiclone 2 mg tablet (Lunesta) 2 mg PO DAILY 08/16/24 08/16/24 08/20/24 History montelukast 10 mg tablet 10 mg PO DAILY 08/16/24 08/16/24 08/20/24 History oxybutynin chloride 5 mg 5 mg PO DAILY 08/16/24 08/16/24 08/20/24 History tablet,extended release 24 hr pantoprazole 40 mg tablet,delayed 40 mg PO DAILY 08/16/24 08/16/24 08/20/24 History release rosuvastatin 20 mg tablet 20 mg PO DAILY 08/16/24 08/16/24 08/20/24 History sucralfate 1 gram tablet 1 g PO BID 08/16/24 08/16/24 08/20/24 History triamcinolone acetonide 0.1 % 1 applic topical BID 08/18/24 08/18/24 08/20/24 History topical cream valacyclovir 500 mg tablet 500 mg PO BID 08/18/24 08/18/24 08/20/24 History Allergies Allergy/AdvReac Type Severity Reaction Status Date / Time cyclobenzaprine Allergy rapid Verified 08/16/24 10:47 [From Flexeril] heart beat erythromycin base Allergy vomiting Verified 08/16/24 10:47 iron Allergy ADR-Diarrhe Verified 08/16/24 10:47 a nitrofurantoin Allergy ADR-Dizzine Verified 08/16/24 10:47 [From Macrobid] ss oxcarbazepine Allergy ADR-Dizzine Verified 08/16/24 10:47 [From Trileptal] ss Sulfa (Sulfonamide Allergy ALGY-Hives Verified 08/16/24 10:47 Antibiotics) topiramate [From Topamax] Allergy felt like Verified 08/16/24 10:47 feet were burning off Current Medications Generic Name Dose Route Start Last Admin Trade Name Freq PRN Reason Stop Dose Admin Sodium Chloride 1,000 mls @ 30 mls/hr 08/21/24 06:45 08/21/24 07:06 Sodium Chloride 0.9% IV 08/22/24 06:44 30 mls/hr .Q24H RAYMUNDO Administration PFSH Anesthesia Medical History Follow-up examination of abnormal mammogram Breast density Lung nodule Enrolled in chronic care management Major depressive disorder, recurrent episode with anxious distress Family conflict Anxiety state, unspecified Major depressive disorder in partial remission Acid reflux History of eustachian tube dysfunction History of radiation therapy Psychiatric care Major depressive disorder in partial remission Mixed incontinence urge and stress Obstructive sleep apnea Metabolic syndrome Vitamin D deficiency Herpes simplex Spondylolisthesis, cervical region Mixed hyperlipidemia Seasonal allergic rhinitis due to pollen FLIP (stress urinary incontinence, female) Major depressive disorder, recurrent episode with anxious distress Lumbosacral spondylosis with radiculopathy Insomnia, persistent Adult onset hypothyroidism Osteoporosis, post-menopausal Surgical History History of bladder surgery device placed with wires that control the bladder History of bilateral tubal ligation History of salpingectomy History of dental surgery History of D&C History of left oophorectomy History of thyroid surgery History of colonoscopy with polypectomy History of cancer tonsil Family History Father Hypertension Mother No problems noted. Sister Diabetes Hyperlipidemia Brother Cancer bone cancer Family/Other Breast cancer Maternal Aunt Denies family history of CAD (coronary artery disease) Clotting disorder Chronic kidney disease (CKD) Bleeding disorder Thyroid disease Stroke Social History Smoking and tobacco/nicotine status: never used tobacco/nicotine Quit status (tobacco/nicotine): has quit using Year quit tobacco: 2013 Second hand smoke exposure: No Alcohol intake: never Substance/Drug Use: never Adopted: No Caregiver/support person: No Lives independently: Yes Household members: spouse Housing: House Marital status: Number of children: 2 service: No Current occupational status: unemployed Do you think of yourself as: Straight/Heterosexual Current gender identity: Female Female Reproductive History Para: 2 Spontaneous abortions: No Data Anesthesia Cardiac Studies: No Data to Display
--- NOTE | 2024-08-21 07:57 | W.PM.OPSFHP ---
Same Day Surgery H&P Indication for Procedure/HPI DATE OF PROCEDURE: August 21, 2024 CHIEF COMPLAINT/INDICATIONFOR SURGICAL PROCEDURE: Screening colonoscopy PREOP DIAGNOSIS: HO colon polyps PLANNED PROCEDURE: Operation Date: 08/21/24 07:45 Proposed Procedures p Colonoscopy 18166, G0105, z12.11, Z86.010(Not Applicable) - Rj Schuster MD Medications/Allergies* Home Medications Medication Instructions Recorded Confirmed Type albuterol sulfate 2.5 mg/3 mL 2.5 mg inhalation Q6H PRN 12/14/23 08/16/24 History (0.083 %) solution for nebulization Shortness Of Breath azelastine 137 mcg-fluticasone 50 1 spray intranasal BID 01/25/24 08/16/24 History mcg/spray nasal spray (Dymista) albuterol sulfate 90 mcg/actuation 2 puff inhalation QID PRN 08/16/24 08/16/24 History aerosol inhaler Shortness Of Breath Or Wheezing ergocalciferol (vitamin D2) 1,250 1,250 mcg PO .WEEKLY 08/16/24 08/16/24 History mcg (50,000 unit) capsule eszopiclone 2 mg tablet (Lunesta) 2 mg PO DAILY 08/16/24 08/16/24 History montelukast 10 mg tablet 10 mg PO DAILY 08/16/24 08/16/24 History oxybutynin chloride 5 mg 5 mg PO DAILY 08/16/24 08/16/24 History tablet,extended release 24 hr pantoprazole 40 mg tablet,delayed 40 mg PO DAILY 08/16/24 08/16/24 History release rosuvastatin 20 mg tablet 20 mg PO DAILY 08/16/24 08/16/24 History sucralfate 1 gram tablet 1 g PO BID 08/16/24 08/16/24 History triamcinolone acetonide 0.1 % 1 applic topical BID 08/18/24 08/18/24 History topical cream valacyclovir 500 mg tablet 500 mg PO BID 08/18/24 08/18/24 History Allergies/Adverse Reactions Allergy/AdvReac Type Severity Reaction Status Date / Time cyclobenzaprine Allergy rapid Verified 08/16/24 10:47 [From Flexeril] heart beat erythromycin base Allergy vomiting Verified 08/16/24 10:47 iron Allergy ADR-Diarrhe Verified 08/16/24 10:47 a nitrofurantoin Allergy ADR-Dizzine Verified 08/16/24 10:47 [From Macrobid] ss oxcarbazepine Allergy ADR-Dizzine Verified 08/16/24 10:47 [From Trileptal] ss Sulfa (Sulfonamide Allergy ALGY-Hives Verified 08/16/24 10:47 Antibiotics) topiramate [From Topamax] Allergy felt like Verified 08/16/24 10:47 feet were burning off Current Medications: Generic Name Dose Route Start Last Admin Trade Name Freq PRN Reason Stop Dose Admin Sodium Chloride 1,000 mls @ 30 mls/hr 08/21/24 06:45 08/21/24 07:06 Sodium Chloride 0.9% IV 08/22/24 06:44 30 mls/hr .Q24H RAYMUNDO Administration Pertinent History/Comorbid Conditions* Medical History (Updated 06/14/24 @ 15:27 by Libra Montez MD) Follow-up examination of abnormal mammogram Breast density Lung nodule Enrolled in chronic care management Major depressive disorder, recurrent episode with anxious distress Family conflict Anxiety state, unspecified Major depressive disorder in partial remission Acid reflux History of eustachian tube dysfunction History of radiation therapy Psychiatric care Major depressive disorder in partial remission Mixed incontinence urge and stress Obstructive sleep apnea Metabolic syndrome Vitamin D deficiency Herpes simplex Spondylolisthesis, cervical region Mixed hyperlipidemia Seasonal allergic rhinitis due to pollen FLIP (stress urinary incontinence, female) Major depressive disorder, recurrent episode with anxious distress Lumbosacral spondylosis with radiculopathy Insomnia, persistent Adult onset hypothyroidism Osteoporosis, post-menopausal Surgical History (Updated 02/15/22 @ 13:32 by Danya Fraga MD) History of bladder surgery device placed with wires that control the bladder History of bilateral tubal ligation History of salpingectomy History of dental surgery History of D&C History of left oophorectomy History of thyroid surgery History of colonoscopy with polypectomy History of cancer tonsil Family History (Updated 11/24/21 @ 08:30 by Delisa Tesfaye LPN) Diabetes Sister Hyperlipidemia Sister Breast cancer Family/Other Maternal Aunt Cancer Brother bone cancer Hypertension Father Denies family history of CAD (coronary artery disease) Clotting disorder Chronic kidney disease (CKD) Bleeding disorder Thyroid disease Stroke Social History Smoking and tobacco/nicotine status: never used tobacco/nicotine Quit status (tobacco/nicotine): has quit using Year quit tobacco: 2013 Second hand smoke exposure: No Alcohol intake: never Substance/Drug Use: never Adopted: No Caregiver/support person: No Lives independently: Yes Household members: spouse Housing: House Marital status: Number of children: 2 service: No Current occupational status: unemployed Do you think of yourself as: Straight/Heterosexual Current gender identity: Female Pertinent Exam Findings alert, oriented x 3, clear to auscultation bilaterally, regular rate & rhythm and procedure specific exam findings Abdomen soft, nt, nd Recommendations Surgery/Procedure today Coding Level of Care Code Acute Code for g Fwd
[2024-08-21 08:18] VITALS: BP 88/54; PULSE 72; RESP 18; TEMP 36.1; O2SAT 91
[2024-08-21 08:23] VITALS: BP 91/58; PULSE 69; RESP 18; O2SAT 96
--- NOTE | 2024-08-21 08:29 | ANE.PACU2 ---
Inpatient post-anesthesia follow up: Airway intact: Yes Vital signs: Temperature 97.0 F Pulse Rate 69 Respiratory Rate 18 Blood Pressure 91/58 Pulse Oximetry 96 Oxygen Delivery Me thod Room Air Oxygen Flow Rate Fraction of Inspir ed Oxygen Hydration adequate: Yes Nausea and vomiting: No Pain level: 1 Mental status: Baseline
[2024-08-21 08:33] VITALS: BP 109/74; PULSE 70; RESP 18; O2SAT 94
== END 2024-08-21 09:08 | disposition home or self-care (01) ==
PROVIDERS: PCP Nurse Practitioner Family; Visit Provider Student in an Organized Health Care Education/Training Program
PROC: 0DJD8ZZ Inspection of Lower Intestinal Tract, Via Natural or Artificial Opening Endoscopic (ICD-10-PCS; CPT 45378; principal; 2024-08-21 07:45)
DX: Z12.11 Encounter for screening for malignant neoplasm of colon (principal); Z86.0100 Personal history of colon polyps, unspecified; K57.30 Diverticulosis of large intestine without perforation or abscess without bleeding; K64.1 Second degree hemorrhoids; G47.33 Obstructive sleep apnea (adult) (pediatric); E78.2 Mixed hyperlipidemia; E03.9 Hypothyroidism, unspecified; Z87.891 Personal history of nicotine dependence; J44.9 Chronic obstructive pulmonary disease, unspecified; E78.5 Hyperlipidemia, unspecified; E66.01 Morbid (severe) obesity due to excess calories; Z68.38 Body mass index [BMI] 38.0-38.9, adult
CPT/HCPCS: 45378; J2704; J7030

== ENCOUNTER → 2024-08-31 08:44 | Outpatient (BNVA) | payer MEDICARE, SELFPAY ==
[2024-06-27 13:11] VITALS: BP 108/66; BMI 35.1
== END ==
PROVIDERS: PCP Nurse Practitioner Family; Visit Provider Student in an Organized Health Care Education/Training Program
DX: M65.341 Trigger finger, right ring finger (principal)
CPT/HCPCS: 99214

== ENCOUNTER 2024-09-21 07:25 | Day surgery (SDC) | payer MEDICARE, MEDICAID, SELFPAY ==
[2024-06-27 13:11] VITALS: BP 108/66; BMI 35.1
[2024-09-21] VITALS (7 sets, daily range): BP systolic 92–142; BP diastolic 50–79; PULSE 68–77; RESP 10–18; TEMP 36.3–36.6; O2SAT 92–97; BMI 38.2
--- NOTE | 2024-09-21 08:01 | ANES.PREANE2 ---
Pre-Anesthetic Assessment Height/Weight: Height 5 ft 3 in Weight 216 lb Temp Pulse Resp BP Pulse Ox O2 Del Method 97.3 F L 76 17 142/73 97 Room Air 09/21/24 07:53 09/21/24 07:53 09/21/24 07:53 09/21/24 07:53 09/21/24 07:53 09/21/24 07:54 Preop Diagnosis: Trigger finger Operation Date: 09/21/24 09:15 Proposed Procedures p ring finger trigger release(Right) - Franklin Carroll, DO Was Beta Erin taken within 24 hours: N/A Was Clonidine taken within 24 hours: N/A Last intake: Intake Last Liquid Date 09/20/24 Last Liquid Time 21:00 Last Solid Date 09/20/24 Last Solid Time 21:00 Social No alcohol and No tobacco Exam alert, oriented x 3, clear to auscultation bilaterally and regular rate & rhythm Airway Submandibular: within normal limits Cervical ROM: within normal limits Mallampati: Class III Dentition: false Comments: Comments: Small mouth opening with dentures present, will remove prior Anesthetic Plan ASA status: 3 Anesthesia: MAC Other: No prior issues with anesthesia NPO since yesterday Patient recently had a colonoscopy in August under MAC anesthetic without issues History of COPD and DALIA Anxiety and bipolar Type 2 diabetes GERD on Protonix and sucralfate Hypothyroidism on Synthroid Plan for MAC anesthetic with local via surgeon Medications/Allergies Home Medications Medication Instructions Recorded Confirmed Last Taken Type clindamycin phosphate 1 % lotion 1 applic topical BID #60 mL 05/30/22 09/20/24 09/20/24 Rx Disposable nebulizer circuit with #1 ea 07/14/22 09/11/24 Unknown Rx mask cetirizine 10 mg tablet (Zyrtec) 10 mg PO DAILY #90 tabs 08/11/23 09/20/24 09/20/24 Rx mupirocin 2 % topical ointment 1 applic topical BID #22 grams 12/29/23 09/20/24 09/20/24 Rx nystatin 100,000 unit/mL oral 5 ml buccal TID 7 days #200 mL 12/29/23 09/20/24 09/20/24 Rx suspension nebulizer tubing and mask #1 ea 01/14/24 09/11/24 Unknown Rx azelastine 137 mcg-fluticasone 50 1 spray intranasal BID 04/16/24 12/11/24 12/11/24 History mcg/spray nasal spray (Dymista) clobetasol 0.05 % topical gel 1 applic topical DAILY 14 days #60 02/04/24 09/20/24 09/20/24 Rx grams cords and hoses for cpap machine #1 ea 03/16/24 09/11/24 Unknown Rx levothyroxine 75 mcg tablet 75 mcg PO DAILY #30 tabs 05/29/24 09/20/24 09/20/24 Rx clotrimazole 1 % topical cream 1 applic topical BID 14 days #45 06/06/24 09/20/24 09/20/24 Rx grams ketoconazole 2 % topical cream 1 applic topical BID 14 days #60 06/06/24 09/11/24 08/20/24 Rx grams fluconazole 150 mg tablet 150 mg PO DAILY #3 tabs 06/14/24 09/20/24 09/20/24 Rx nystatin 100,000 unit/gram topical 1 applic topical BID #30 grams 06/14/24 09/20/24 09/20/24 Rx cream aripiprazole 5 mg tablet 5 mg PO DAILY #30 tabs 06/26/24 09/20/24 09/20/24 Rx auto titrating cpap at 6-14cm with #1 ea 06/26/24 09/11/24 Unknown Rx nose mask docosahexaenoic acid 200 mg 200 mg PO DAILY #100 caps 06/26/24 09/20/24 09/20/24 Rx capsule ( DHA) duloxetine 60 mg capsule,delayed 60 mg PO BID #60 caps 06/26/24 09/20/24 09/20/24 Rx release estradiol 0.01% (0.1 mg/gram) 2 g vaginal .2 times a week #42.5 06/26/24 09/20/24 09/20/24 Rx vaginal cream grams gabapentin 300 mg capsule 300 mg PO BID #60 caps 06/26/24 09/20/24 09/20/24 Rx albuterol sulfate 90 mcg/actuation 2 puff inhalation QID PRN 08/16/24 09/21/24 09/21/24 History aerosol inhaler Shortness Of Breath Or Wheezing eszopiclone 2 mg tablet (Lunesta) 2 mg PO DAILY 08/16/24 09/20/24 09/20/24 History montelukast 10 mg tablet 10 mg PO DAILY 08/16/24 09/20/24 09/20/24 History oxybutynin chloride 5 mg 5 mg PO DAILY 08/16/24 09/20/24 09/20/24 History tablet,extended release 24 hr pantoprazole 40 mg tablet,delayed 40 mg PO DAILY 08/16/24 09/20/24 09/20/24 History release rosuvastatin 20 mg tablet 20 mg PO DAILY 08/16/24 09/20/24 09/20/24 History sucralfate 1 gram tablet 1 g PO BID 08/16/24 09/20/24 09/20/24 History triamcinolone acetonide 0.1 % 1 applic topical BID 08/18/24 09/20/24 09/20/24 History topical cream valacyclovir 500 mg tablet 500 mg PO BID 08/18/24 09/20/24 09/20/24 History albuterol sulfate 2.5 mg/3 mL 2.5 mg (3 mL) inhalation Q6H PRN 09/01/24 09/20/24 09/20/24 Rx (0.083 %) solution for nebulization Shortness Of Breath #180 mL lorazepam 1 mg tablet 1 mg PO BID PRN anxiety #60 tabs 09/18/24 09/20/24 09/20/24 Rx diclofenac sodium 75 mg See Rx Instructions .Route 09/20/24 09/21/24 Unknown Rx tablet,delayed release .COMPLEX #60 tabs ergocalciferol (vitamin D2) 1,250 See Rx Instructions .Route .COMPLEX 09/20/24 09/20/24 09/20/24 History mcg (50,000 unit) capsule budesonide-formoterol HFA 80 See Rx Instructions .Route .COMPLEX 09/21/24 09/20/24 09/21/24 History mcg-4.5 mcg/actuation aerosol inhaler (Symbicort) Allergies Allergy/AdvReac Type Severity Reaction Status Date / Time cyclobenzaprine Allergy rapid Verified 09/21/24 07:42 [From Flexeril] heart beat erythromycin base Allergy vomiting Verified 09/21/24 07:42 iron Allergy ADR-Diarrhe Verified 09/21/24 07:42 a nitrofurantoin Allergy ADR-Dizzine Verified 09/21/24 07:42 [From Macrobid] ss oxcarbazepine Allergy ADR-Dizzine Verified 09/21/24 07:42 [From Trileptal] ss Sulfa (Sulfonamide Allergy ALGY-Hives Verified 09/21/24 07:42 Antibiotics) topiramate [From Topamax] Allergy felt like Verified 09/21/24 07:42 feet were burning off PFSH Anesthesia Medical History Follow-up examination of abnormal mammogram Breast density Lung nodule Enrolled in chronic care management Major depressive disorder, recurrent episode with anxious distress Family conflict Anxiety state, unspecified Major depressive disorder in partial remission Acid reflux History of eustachian tube dysfunction History of radiation therapy Psychiatric care Major depressive disorder in partial remission Mixed incontinence urge and stress Obstructive sleep apnea Metabolic syndrome Vitamin D deficiency Herpes simplex Spondylolisthesis, cervical region Mixed hyperlipidemia Seasonal allergic rhinitis due to pollen FLIP (stress urinary incontinence, female) Major depressive disorder, recurrent episode with anxious distress Lumbosacral spondylosis with radiculopathy Insomnia, persistent Adult onset hypothyroidism Osteoporosis, post-menopausal Surgical History History of bladder surgery device placed with wires that control the bladder History of bilateral tubal ligation History of salpingectomy History of dental surgery History of D&C History of left oophorectomy History of thyroid surgery History of colonoscopy with polypectomy History of cancer tonsil Family History Father Hypertension Mother No problems noted. Sister Diabetes Hyperlipidemia Brother Cancer bone cancer Family/Other Breast cancer Maternal Aunt Denies family history of CAD (coronary artery disease) Clotting disorder Chronic kidney disease (CKD) Bleeding disorder Thyroid disease Stroke Social History Smoking and tobacco/nicotine status: never used tobacco/nicotine Quit status (tobacco/nicotine): has quit using Year quit tobacco: 2013 Second hand smoke exposure: No Alcohol intake: never Substance/Drug Use: never Adopted: No Caregiver/support person: No Lives independently: Yes Household members: spouse Housing: House Marital status: Number of children: 2 service: No Current occupational status: unemployed Do you think of yourself as: Straight/Heterosexual Current gender identity: Female Female Reproductive History Para: 2 Spontaneous abortions: No Data Anesthesia Cardiac Studies: No Data to Display
[2024-09-21] MEDS: ketorolac 30 mg/mL INJ IVP (08:17)
[2024-09-21] MEDS: acetaminophen 1,000 MG/100 ML PIGGYBACK 400 MG IV (08:18)
--- NOTE | 2024-09-21 08:20 | W.PM.OPSUD ---
Surgery/Procedure H&P Update DATE OF PROCEDURE: September 21, 2024 DATE H&P PERFORMED: 08/31/24 H&P UPDATE INFORMATION: I have reviewed H&P completed within last 30 days, I have examined patient prior to procedure and No changes to prior documentation PREOP DIAGNOSIS: Right ring trigger finger PRIMARY INDICATION FOR PROCEDURE: Right ring finger trigger PLANNED PROCEDURE: Operation Date: 09/21/24 09:15 Proposed Procedures p ring finger trigger release(Right) - Franklin Hodges DO
[2024-09-21] MEDS: sodium chloride 0.9% 1,000 ML 30 ML IV (08:22)
[2024-09-21] MEDS: ceFAZolin 2,000 mg SDV 2000 MG IVP (09:03)
[2024-09-21] MEDS: ROPivacaine 0.5% SDV 30 mL 25 MG INJECTION (09:10)
--- NOTE | 2024-09-21 09:35 | W.PM.BPON ---
Date of Procedure: 09/21/2024 Surgeon: Franklin Hodges DO Pay Station Attendant(s): None Procedure(s) performed: Right ring finger trigger release Findings of the procedure(s): Patient found to have right ring finger trigger underwent procedure as planned without issues or complications Estimated blood loss: 2 mL Specimen(s) removed: None Post-operative diagnosis: Right ring finger trigger
--- NOTE | 2024-09-21 10:00 | PM.OP ---
Operative Report Date of procedure: September 21, 2024 Surgeon: Franklin Hodges DO Procedure: Preoperative diagnosis: Right ring finger trigger Post-op diagnosis: Same Procedure done: Right?ring finger?trigger?release Surgeon: Franklin Hodges DO Estimated blood loss: 2cc Tourniquet time 5mins Complications: None Condition: stable Disposition: same day Brief History: Patient's been seen and worked up in the outpatient setting and findings consistent with preoperative diagnosis of right?ring finger?trigger.? Patient is failed conservative treatment.? Continues to have mechanical locking and catching.? Severe pain as well.? We talked about treatment options nonoperative versus operative intervention.? ?Patient understands the risk benefits complication alternatives of surgical nonsurgical treatment options.? Understanding risks with surgery patient elects proceed with surgical intervention.? Consent obtained.? Here today to proceed with surgical intervention right ring finger trigger.? All questions answered. Procedure: Patient was seen and evaluated in the preoperative holding area.? Consent was reviewed and signed with patient.? Seen evaluated by Anesthesia Department.? Once cleared for surgery was brought back to the operative suite.? Placed in supine position on the OR table all bony prominences well-padded patient properly secured to the bed.? Patient's right arm was then placed to the armboard.? A nonsterile tourniquet applied to the right upper arm.? Patient's right upper extremity was then prepped and draped in standard orthopedic fashion.? Final timeout performed.? Patient received appropriate preoperative antibiotics. Esmarch tourniquet was used exsanguinate the right upper extremity tourniquet insufflated to 250 mmHg. Under sterile aseptic technique local digital block was performed to the right?ring finger.? Once appropriately anesthetized a standard horizontal/oblique incision was made centering over the A1 sahil following patient's flexor crease.? Sharp scalpel incision was made only through skin and then switched to Littler dissection scissors and spread longitudinally directly over the flexor tendon sheath.? I then mobilized both radially and ulnarly and Kasdan retractors were used and placed by my retail loan originator assistant to protect neurovascular bundle.? Next I visualized the A1 sahil and this was incised with a scalpel.? I then switched to dissection scissors and released the A1 sahil both proximally as well as distally to its entirety.? Significant tendon sheath fluid was noted consistent with inflammation.? Mild fraying of the flexor tendons noted but no tear.? At this point I utilized a rag nail and pulled the tendons FDS and FDP out of the incision and no?triggering was noted.? I then had anesthesia wake up the patient and patient was able to actively flex and extend with no?triggering.? This point thorough irrigation was performed.? Tourniquet deflated hemostasis satisfactory with bipolar.? I then subsequently closed the incision with interrupted nylon suture.? Xeroform 4 x 4's, Kerlix and an Shubham wrap was applied for a bulky soft dressing.? Patient was then subsequently awakened from anesthesia and taken to PACU in stable condition tolerated procedure without issues. Disposition: Patient taken back in stable condition recovering well.? Patient will receive appropriate discharge instruction as well as pain medication postoperatively.? Patient to follow-up with Ortho in the office in 2 weeks for repeat evaluation and incision check.? Patient understands that any questions or concerns and contact the office.? All questions answered.
--- NOTE | 2024-09-21 10:29 | ANE.PACU2 ---
Inpatient post-anesthesia follow up: Airway intact: Yes Vital signs: Temperature 97.5 F Pulse Rate 71 Respiratory Rate 18 Blood Pressure 106/59 Pulse Oximetry 95 Oxygen Delivery Me thod Room Air Oxygen Flow Rate Fraction of Inspir ed Oxygen Hydration adequate: Yes Nausea and vomiting: No Pain level: 1 Mental status: Baseline
== END 2024-09-21 10:29 | disposition home or self-care (01) ==
PROVIDERS: PCP Nurse Practitioner Family; Visit Provider Student in an Organized Health Care Education/Training Program
PROC: (CPT 26055; principal; 2024-09-21 09:15)
DX: M65.341 Trigger finger, right ring finger (principal); J44.9 Chronic obstructive pulmonary disease, unspecified; G47.33 Obstructive sleep apnea (adult) (pediatric); E11.9 Type 2 diabetes mellitus without complications; K21.9 Gastro-esophageal reflux disease without esophagitis; E03.9 Hypothyroidism, unspecified; E78.2 Mixed hyperlipidemia
CPT/HCPCS: 26055; J0131; J0690; J1885; J2704; J2795; J3010; J7030

== ENCOUNTER → 2024-11-10 08:33 | Outpatient (BNVA) | payer OTHER, SELFPAY ==
[2024-06-27 13:11] VITALS: BP 108/66; BMI 35.1
== END ==
PROVIDERS: PCP Nurse Practitioner Family; Visit Provider Nurse Practitioner Psychiatric/Mental Health
DX: F33.9 Major depressive disorder, recurrent, unspecified (principal); Z79.899 Other long term (current) drug therapy
CPT/HCPCS: 80061; 83036

== ENCOUNTER → 2024-11-21 14:58 | Outpatient (BNVA) | payer MEDICARE, MEDICAID, SELFPAY ==
[2024-11-14 15:52] VITALS: BP 124/60; BMI 37.3
== END ==
PROVIDERS: PCP Nurse Practitioner Family; Visit Provider Physician Assistant
DX: Z98.890 Other specified postprocedural states (principal)
CPT/HCPCS: 99024

== ENCOUNTER 2024-12-09 06:30 | Outpatient (RCR) | payer MEDICARE, MEDICAID, SELFPAY ==
[2024-12-04 10:57] VITALS: BP 124/60; BMI 37.3
== END 2025-01-08 23:59 | disposition home or self-care (01) ==
LOC: TPT 06:30
PROVIDERS: PCP Nurse Practitioner Family; Visit Provider Nurse Practitioner Family
DX: M25.551 Pain in right hip (principal); M25.552 Pain in left hip; G89.29 Other chronic pain
CPT/HCPCS: 97161

== ENCOUNTER → 2024-12-11 12:17 | Outpatient (BNVA) | payer MEDICARE, MEDICAID, SELFPAY ==
[2024-12-04 10:57] VITALS: BP 124/60; BMI 37.3
== END ==
PROVIDERS: PCP Nurse Practitioner Family; Visit Provider Nurse Practitioner Family
DX: E78.00 Pure hypercholesterolemia, unspecified (principal); E03.9 Hypothyroidism, unspecified
CPT/HCPCS: 80053; 84443; 85025

== ENCOUNTER 2025-01-09 05:00 | Outpatient (RCR) | payer MEDICARE, MEDICAID, SELFPAY ==
[2024-12-04 10:57] VITALS: BP 124/60; BMI 37.3
== END 2025-02-07 23:59 | disposition home or self-care (01) ==
LOC: TPT 05:00
PROVIDERS: PCP Nurse Practitioner Family; Visit Provider Nurse Practitioner Family
DX: M25.551 Pain in right hip (principal); M25.552 Pain in left hip; G89.29 Other chronic pain
CPT/HCPCS: 97110

== ENCOUNTER 2025-02-08 05:00 | Outpatient (RCR) | payer MEDICARE, MEDICAID, SELFPAY ==
[2024-12-04 10:57] VITALS: BP 124/60; BMI 37.3
== END 2025-03-06 11:14 | disposition home or self-care (01) ==
LOC: TPT 05:00
PROVIDERS: PCP Nurse Practitioner Family; Visit Provider Nurse Practitioner Family
DX: M25.551 Pain in right hip (principal); M25.552 Pain in left hip; G89.29 Other chronic pain
CPT/HCPCS: 97110

== ENCOUNTER → 2025-02-20 10:06 | Outpatient (BNVA) | payer MEDICARE, MEDICAID, SELFPAY ==
[2024-12-04 10:57] VITALS: BP 124/60; BMI 37.3
== END ==
PROVIDERS: PCP Nurse Practitioner Family; Visit Provider Physician Assistant
DX: Z98.890 Other specified postprocedural states (principal)
CPT/HCPCS: 99024

== ENCOUNTER → 2025-02-22 09:41 | Outpatient (BNVA) | payer MEDICARE, OTHER, SELFPAY ==
[2024-12-04 10:57] VITALS: BP 124/60; BMI 37.3
== END ==
PROVIDERS: PCP Nurse Practitioner Family; Visit Provider Nurse Practitioner Family
DX: E03.8 Other specified hypothyroidism (principal)
CPT/HCPCS: 84443

== ENCOUNTER → 2025-04-24 09:04 | Outpatient (BNVA) | payer MEDICARE, MEDICAID, SELFPAY ==
[2024-12-04 10:57] VITALS: BP 124/60; BMI 37.3
== END ==
PROVIDERS: PCP Nurse Practitioner Family; Visit Provider Nurse Practitioner Family
DX: E78.00 Pure hypercholesterolemia, unspecified (principal)
CPT/HCPCS: 84443

== ENCOUNTER → 2025-04-25 09:33 | Outpatient (BNVA) | payer MEDICARE, MEDICAID, SELFPAY ==
[2024-12-04 10:57] VITALS: BP 124/60; BMI 37.3
== END ==
PROVIDERS: PCP Nurse Practitioner Family; Visit Provider Nurse Practitioner Family
DX: L81.4 Other melanin hyperpigmentation (principal); L57.8 Other skin changes due to chronic exposure to nonionizing radiation; D22.5 Melanocytic nevi of trunk; L82.1 Other seborrheic keratosis; L73.2 Hidradenitis suppurativa; L57.0 Actinic keratosis
CPT/HCPCS: 17000; 99214

== ENCOUNTER → 2025-04-27 14:48 | Outpatient (BNVA) | payer MEDICARE, MEDICAID, SELFPAY ==
[2024-12-04 10:57] VITALS: BP 124/60; BMI 37.3
== END ==
PROVIDERS: PCP Nurse Practitioner Family; Visit Provider Nurse Practitioner Family
DX: R30.0 Dysuria (principal)
CPT/HCPCS: 81000

== ENCOUNTER → 2025-05-07 14:47 | Outpatient (BNVA) | payer MEDICARE, MEDICAID, SELFPAY ==
[2024-12-04 10:57] VITALS: BP 124/60; BMI 37.3
== END ==
PROVIDERS: PCP Nurse Practitioner Family; Visit Provider Nurse Practitioner Family
DX: R05.9 Cough, unspecified (principal); J43.8 Other emphysema
CPT/HCPCS: 71046

== ENCOUNTER → 2025-06-29 14:23 | Outpatient (BNVA) | payer MEDICARE, MEDICAID, SELFPAY ==
[2024-12-04 10:57] VITALS: BP 124/60; BMI 37.3
== END ==
PROVIDERS: PCP Nurse Practitioner Family; Visit Provider Obstetrics & Gynecology
DX: Z12.4 Encounter for screening for malignant neoplasm of cervix (principal)
CPT/HCPCS: 87624

== ENCOUNTER → 2025-07-03 09:40 | Outpatient (BNVA) | payer MEDICARE, MEDICAID, SELFPAY ==
[2024-12-04 10:57] VITALS: BP 124/60; BMI 37.3
== END ==
PROVIDERS: PCP Nurse Practitioner Family; Visit Provider Nurse Practitioner Family
DX: E03.9 Hypothyroidism, unspecified (principal)
CPT/HCPCS: 84443

== ENCOUNTER → 2025-08-08 08:06 | Outpatient (BNVA) | payer MEDICARE, MEDICAID, SELFPAY ==
[2024-12-04 10:57] VITALS: BP 124/60; BMI 37.3
== END ==
PROVIDERS: PCP Nurse Practitioner Family; Visit Provider Student in an Organized Health Care Education/Training Program
DX: M65.342 Trigger finger, left ring finger (principal)
CPT/HCPCS: 73130; 99214

== ENCOUNTER → 2025-09-25 14:56 | Outpatient (BNVA) | payer MEDICARE, MEDICAID, SELFPAY ==
[2024-12-04 10:57] VITALS: BP 124/60; BMI 37.3
== END ==
PROVIDERS: PCP Nurse Practitioner Family; Visit Provider Nurse Practitioner Family
DX: E55.9 Vitamin D deficiency, unspecified (principal); E78.2 Mixed hyperlipidemia; E78.00 Pure hypercholesterolemia, unspecified
CPT/HCPCS: 80053; 80061; 82306; 83550; 84439; 84443; 85025

== ENCOUNTER 2025-10-05 14:43 | Outpatient (CLI) | payer MEDICARE, MEDICAID, SELFPAY ==
[2024-12-04 10:57] VITALS: BP 124/60; BMI 37.3
--- NOTE | 2025-10-05 15:00 | US_ITS ---
WS: [id number] THYROID ULTRASOUND HISTORY: E03.9 - Hypothyroidism, unspecified COMPARISON: None available. Right lobe: 0.9 cm x 1.5 cm x 3.3 cm (w x ap x l). Volume: 2.1 cm3. Normal size and echotexture. No significant are dominant nodules are present. Left lobe: LEFT thyroidectomy. No mass or recurrent tissue in the thyroid bed. No adenopathy. Isthmus: 0.3 cm. US/US thyroid 30808 IMPRESSION: 1. Status post LEFT thyroidectomy. 2. No suspicious RIGHT thyroid nodule. Normal size RIGHT thyroid.
== END 2025-10-05 14:44 | disposition home or self-care (01) ==
LOC: RAD 14:44
PROVIDERS: PCP Nurse Practitioner Family; Visit Provider Nurse Practitioner Family
DX: E03.9 Hypothyroidism, unspecified (principal); Z98.890 Other specified postprocedural states; Z90.89 Acquired absence of other organs
CPT/HCPCS: 76536